=== PATIENT | female | born 1940 | race Caucasian/White ===

== ENCOUNTER → 2016-06-23 | Outpatient (CLI) | payer MEDICARE, OTHER | END | disposition home or self-care (01) | LOC: LAB.O 08:34 | PROVIDERS: ATTEND Internal Medicine Rheumatology | DX: R76.8 Other specified abnormal immunological findings in serum (principal) ==

== ENCOUNTER → 2016-07-19 | Outpatient (CLI) | payer MEDICARE, OTHER ==
--- NOTE | 2016-07-19 10:05 | RAD ---
EXAM DESCRIPTION: Knee,Right Complete CLINICAL HISTORY: PAIN IN RIGHT KNEE COMPARISON: None. IMPRESSION: 3 standing views of the right knee show diffuse osteopenia of the osseous structures. No acute fracture, focal bone destruction, or joint dislocation is seen. There is at least mild narrowing of the tibiofemoral compartment consistent with mild osteoarthritic changes. Moderate narrowing of the lateral patellofemoral compartment and lateral patellar osteophyte consistent with osteoarthritic changes are noted. Electronically signed by: Carlos Alberto Rooney MD 07/19/2016 10:04 AM CDT
--- NOTE | 2016-07-19 10:22 | RAD ---
EXAM DESCRIPTION: Pelvis CLINICAL HISTORY: 76 years Female, PAIN IN RIGHT HIP COMPARISON: December 15, 2015 FINDINGS: There is no acute fracture or malalignment. Mild degenerative changes are noted in both hips, unchanged from the previous exam. Degenerative changes are also noted in the pubic symphysis. IMPRESSION: Mild degenerative changes in both hips, but no additional right hip abnormality. Electronically signed by: Shad Rand MD 07/19/2016 10:22 AM CDT
== END | disposition home or self-care (01) ==
LOC: RAD 08:41
PROVIDERS: ATTEND Orthopaedic Surgery
DX: M25.551 Pain in right hip (principal)

== ENCOUNTER 2016-07-20 14:31 | Emergency (ER) | payer MEDICARE, OTHER ==
[2016-07-20] MEDS ORDERED: ASPIRIN TABLET 325 MG TAB PO ONE (14:45)
[2016-07-20] MEDS ORDERED: cloNIDine HCL 0.1 MG TAB PO ONE (15:37)
--- NOTE | 2016-07-20 15:54 | RAD ---
EXAM DESCRIPTION: Chest,1 View CLINICAL HISTORY: 76 years Female, not feeling well. Malaise. COMPARISON: 05/17/2014 IMPRESSION: Heart size and pulmonary vascularity are within normal limits. A small hiatal hernia suspected. There is no airspace consolidation, pleural effusion, or pneumothorax. No acute osseous abnormality. Electronically signed by: Cesario Arroyo MD 07/20/2016 3:53 PM CDT
[2016-07-20 17:08] VITALS: O2SAT 96
--- NOTE | 2016-07-20 17:21 | ED.PDOC ---
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 SHE BECAME LIGHT HEADED, WEAK, SHAKY. HAS BEEN FEELING MORE ANXIOUS LATELY ABOUT HER CHRONIC DRY TONGUE FOR WHICH SHE SEES RHEUM AND ENT. BP 168/89, PULSE 95 AT HOME. PT STATES IS USUALLY 120'S SBP. FEELS BETTER WHEN LYING DOWN. USED TO BE ON BYSTOLIC, CARDS STOPPED IN ABOUT 1 YR AGO SINCE WASN'T NEEDING ANYMORE. SEE CARDS Q6MOS. H/O 3 STENTS. DENIES CP/SOB. - History of Present Illness Allergies/Adverse Reactions: Allergies NO KNOWN ALLERGY Allergy (Verified 04/29/14 08:13) Home Medications: Ambulatory Orders Aspirin (Enteric Coated) 81 mg PO DAILY 05/27/12 Clopidogrel Bisulfate [Plavix] 75 mg PO HS 05/27/12 Esomeprazole [Nexium] 40 mg PO ACBK 05/27/12 Fenofibrate 160 mg PO HS 05/27/12 Gabapentin [Neurontin] 300 mg PO DAILY 08/03/15 Simvastatin 20 mg PO DAILY 08/03/15 Zolpidem Tartrate [Ambien] 10 mg PO BEDTIME 08/03/15 Lorazepam [Ativan] 0.5 mg PO Q6HR PRN #14 tab 04/02/16 Review of Systems - Review of Systems Constitutional: States: malaise, weakness EENTM: Denies: eye pain, blurred vision, double vision Respiratory: States: no symptoms reported. Denies: short of breath, wheezing Cardiology: Denies: chest pain, palpitations Gastrointestinal/Abdominal: States: no symptoms reported Genitourinary: States: no symptoms reported Musculoskeletal: States: no symptoms reported Skin: States: no symptoms reported Neurological: States: weakness - GENERALIZED; NO FOCAL WEAKNESS. . Denies: numbness, paresthesia Endocrine: States: no symptoms reported Hematologic/Lymphatic: States: no symptoms reported All other Systems: Reviewed and Negative Past Medical History (General) - Patient Medical History Hx Seizures: No Hx Stroke: No Hx Dementia: No Hx Asthma: No Hx of COPD: No Hx Cardiac Disorders: Yes Hx Congestive Heart Failure: No Hx Pacemaker: No Hx Hypertension: Yes Hx Thyroid Disease: No Hx Diabetes: Yes Hx Gastroesophageal Reflux: No Hx Renal Disease: No Hx Cancer: No Hx of HIV: No Hx Hepatitis C: No Hx MRSA: No - Vaccination History Hx Tetanus, Diphtheria Vaccination: No Hx Influenza Vaccination: Yes Hx Pneumococcal Vaccination: Yes - Social History Hx Tobacco Use: No Hx Chewing Tobacco Use: No Hx Alcohol Use: No Hx Substance Use: No Hx Substance Use Treatment: No Hx Depression: No Hx Physical Abuse: No Hx Emotional Abuse: No Hx Suspected Abuse: No - Female History Patient : No Family Medical History - Family History Mother Family History: No Known Physical Exam - Physical Exam General Appearance: Alert, Comfortable Eye Exam: bilateral normal Ears, Nose, Throat: hearing grossly normal, normal pharynx Neck: non-tender, full range of motion, supple Respiratory: chest non-tender, lungs clear, normal breath sounds, no respiratory distress Cardiovascular/Chest: normal peripheral pulses, regular rate, rhythm, no edema, no gallop, no JVD, no murmur Peripheral Pulses: radial,right: 2+, radial,left: 2+ Gastrointestinal/Abdominal: normal bowel sounds, non tender, soft Back Exam: normal inspection, no CVA tenderness Extremity: normal range of motion, non-tender, no pedal edema 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 I SUSPECT SHE HAS UNDERLYING HTN WHICH IS WORSENING WITH TIME. CBC, CMP, TROP, CXR UNREMARKABLE. EKG SHOWS PVC'S. NO S-T CHANGES. NO S/SX OF STROKE. ORTHOSTATIC V.S. NEG. F/U W/ PCP AND CARDS RE: HTN, PVC'S, ANXIETY. Departure - Departure Clinical Impression: Uncontrolled hypertension, Premature ventricular contraction on electrocardiogram, Anxiety about health, Weakness generalized Disposition: Discharge to Home or Self Care Condition: Good Departure Forms: ED Discharge - Pt. Copy, Patient Portal Self Enrollment Instructions: Treatments for High Blood Pressure: More Than Just Taking a Pill Diet: resume usual diet Activity: increase activity as tolerated Referrals: Dipak Gutiérrez MD [Primary Care Provider] - 1-2 Days Home Medications: Ambulatory Orders Aspirin (Enteric Coated) 81 mg PO DAILY 05/27/12 Clopidogrel Bisulfate [Plavix] 75 mg PO HS 05/27/12 Esomeprazole [Nexium] 40 mg PO ACBK 05/27/12 Fenofibrate 160 mg PO HS 05/27/12 Gabapentin [Neurontin] 300 mg PO DAILY 08/03/15 Simvastatin 20 mg PO DAILY 08/03/15 Zolpidem Tartrate [Ambien] 10 mg PO BEDTIME 08/03/15 Lorazepam [Ativan] 0.5 mg PO Q6HR PRN #14 tab 04/02/16 Additional Instructions: Relax at home tonight and please follow-up with your regular doctor tomorrow to recheck the blood pressure and talk more about your anxiety. It is great meeting you.
[2016-07-20 18:39] VITALS: TEMP 98.1
[2016-07-20 18:47] VITALS: BP 135/86
== END 2016-07-20 17:22 | disposition home or self-care (01) ==
LOC: ER 14:31
DX: I49.3 Ventricular premature depolarization (principal); I10 Essential (primary) hypertension; F41.9 Anxiety disorder, unspecified; R53.1 Weakness; E11.9 Type 2 diabetes mellitus without complications; Z79.82 Long term (current) use of aspirin; Z79.02 Long term (current) use of antithrombotics/antiplatelets; Z79.899 Other long term (current) drug therapy

== ENCOUNTER → 2016-08-26 | Outpatient (CLI) | payer MEDICARE, OTHER | LOC: GMAH 14:42 | PROVIDERS: ATTEND Family Medicine | DX: N30.00 Acute cystitis without hematuria (principal) ==

== ENCOUNTER 2017-02-06 08:43 | Emergency (ER) | payer MEDICARE, OTHER ==
--- NOTE | 2017-02-06 08:45 | ED.PDOC ---
History of Present Illness - General Chief Complaint: General Stated Complaint: dizziness Time Seen by Provider: 02/06/17 08:43 Source: patient, Vital Signs reviewed Exam Limitations: no limitations - History of Present Illness Initial Comments: Mara Maxwell 76 y/o female stated that got up this morning turned around and got dizzy stating felt head was spinning denies blurry vision,dysarthria,stated had ringing in her ears for so many years but does not bother her,no hearing loss, no weakness,no vomiting. Timing/Duration: 1-3 hours Severity: moderate Worsening Factors: nothing Associated Symptoms: denies symptoms Allergies/Adverse Reactions: Allergies NO KNOWN ALLERGY Allergy (Verified 04/29/14 08:13) Home Medications: Ambulatory Orders Aspirin (Enteric Coated) 81 mg PO DAILY 05/27/12 Clopidogrel Bisulfate [Plavix] 75 mg PO HS 05/27/12 Esomeprazole [Nexium] 40 mg PO ACBK 05/27/12 Fenofibrate 160 mg PO HS 05/27/12 Gabapentin [Neurontin] 600 mg PO DAILY 08/03/15 Simvastatin 20 mg PO DAILY 08/03/15 Lorazepam [Ativan] 0.5 mg PO Q6HR PRN #14 tab 04/02/16 Dimenhydrinate [Dramamine] 50 mg PO Q6HRS PRN #30 chw 02/06/17 Temazepam 30 mg PO BEDTIME 02/06/17 Review of Systems - Review of Systems Constitutional: States: no symptoms reported EENTM: States: no symptoms reported Respiratory: States: no symptoms reported Gastrointestinal/Abdominal: States: no symptoms reported Genitourinary: States: no symptoms reported Musculoskeletal: States: no symptoms reported Neurological: States: no symptoms reported Past Medical History (General) - Patient Medical History Hx Seizures: No Hx Stroke: No Hx Dementia: No Hx Asthma: No Hx of COPD: No Hx Cardiac Disorders: Yes Hx Congestive Heart Failure: No Hx Pacemaker: No Hx Hypertension: Yes Hx Thyroid Disease: No Hx Gastroesophageal Reflux: No Hx Renal Disease: No Hx Cancer: No Hx of HIV: No Hx Hepatitis C: No Hx MRSA: No Hx Other PMH: Yes - gerd Surgical History: appendectomy, cholecystectomy, tonsillectomy - Vaccination History Hx Tetanus, Diphtheria Vaccination: No Hx Influenza Vaccination: Yes Hx Pneumococcal Vaccination: Yes - Social History Hx Tobacco Use: No Hx Chewing Tobacco Use: No Hx Alcohol Use: No Hx Substance Use: No Hx Substance Use Treatment: No Hx Depression: No Hx Physical Abuse: No Hx Emotional Abuse: No Hx Suspected Abuse: No - Activities of Daily Living Patient Lives Alone: No - Grooming Ability: Independent Eating (Feeding) Ability: Independent Toileting Ability: Independent - Female History Patient : No Family Medical History - Family History Mother Family History: No Known Living Status: Still Living Hx Family;Other: aortic aneurysm -dad Physical Exam - Physical Exam General Appearance: Alert, Comfortable, No apparent distress Eye Exam: bilateral normal Ears, Nose, Throat: hearing grossly normal, normal ENT inspection Neck: non-tender, full range of motion, supple Respiratory: lungs clear, normal breath sounds Cardiovascular/Chest: normal peripheral pulses, regular rate, rhythm, no murmur Peripheral Pulses: radial,right: 2+, radial,left: 2+ Gastrointestinal/Abdominal: normal bowel sounds, non tender, soft, no organomegaly Extremity: normal inspection, no pedal edema, no calf tenderness Neurologic: no motor/sensory deficits, alert, normal mood/affect, oriented x 3 Skin Exam: normal color, warm/dry Lymphatic: no adenopathy Progress - Progress Progress: 02/06/17 09:17 Vital Signs - 8 hr 02/06/17 08:50 Temperature 95.3 F L Pulse Rate [ 75 Left Brachial] Respiratory 20 Rate Blood Pressure 158/92 [Left Arm] O2 Sat by Pulse 100 Oximetry - Results/Orders Results/Orders: Laboratory Tests 02/06/17 02/06/17 09:37 09:37 WBC 5.7 RBC 4.44 Hgb 13.7 Hct 41.6 MCV 93.7 MCH 30.8 MCHC 32.8 L RDW 14.7 H Plt Count 224 MPV 8.3 Absolute Neuts (auto) 3.40 Absolute Lymphs (auto) 1.50 Absolute Monos (auto) 0.40 Absolute Eos (auto) 0.30 Absolute Basos (auto) 0.10 Neutrophils % 59.8 Lymphocytes % 26.5 Monocytes % 7.5 Eosinophils % 5.0 Basophils % 1.2 Sodium 140 Potassium 4.0 Chloride 109 Carbon Dioxide 25 Anion Gap 10.0 L BUN 20 H Creatinine 0.98 BUN/Creatinine Ratio 20.4 H Random Glucose 139 H Serum Osmolality 284.3 Calcium 9.4 Total Bilirubin 0.5 AST 20 ALT 21 Alkaline Phosphatase 36 L Serum Total Protein 7.0 Albumin 4.1 Globulin 2.9 Albumin/Globulin Ratio 1.4 Patient felt better less dizziness after phenergan and decadron. - EKG/XRAY/CT EKG: Sinus, nonspecific ST T wave Chg - inferior leads Comments: heart rate71 Departure - Departure Clinical Impression: Vertigo, benign positional Qualifiers: Laterality: unspecified laterality Qualified Code(s): H81.10 - Benign paroxysmal vertigo, unspecified ear Time of Disposition: 12:09 Disposition: Discharge to Home or Self Care Condition: Fair Departure Forms: ED Discharge - Pt. Copy, Patient Portal Self Enrollment Instructions: Benign Paroxysmal Positional Vertigo, DI for Vertigo, DI for Benign Paroxysmal Positional Vertigo, Vertigo (Alternative Therapy) Referrals: Dipak Gutiérrez MD [Primary Care Provider] - 1-2 Weeks Prescriptions: Dimenhydrinate [Dramamine] 50 mg PO Q6HRS PRN #30 chw PRN Reason: Dizziness Home Medications: Ambulatory Orders Aspirin (Enteric Coated) 81 mg PO DAILY 05/27/12 Clopidogrel Bisulfate [Plavix] 75 mg PO HS 05/27/12 Esomeprazole [Nexium] 40 mg PO ACBK 05/27/12 Fenofibrate 160 mg PO HS 05/27/12 Gabapentin [Neurontin] 600 mg PO DAILY 08/03/15 Simvastatin 20 mg PO DAILY 08/03/15 Lorazepam [Ativan] 0.5 mg PO Q6HR PRN #14 tab 04/02/16 Dimenhydrinate [Dramamine] 50 mg PO Q6HRS PRN #30 chw 02/06/17 Temazepam 30 mg PO BEDTIME 02/06/17 Additional Instructions: RETURN to EMERGENCY ROOM NEEDED
[2017-02-06 08:53] VITALS: TEMP 95.3
[2017-02-06] MEDS ORDERED: DEXAMETHASONE INJ 4 MG/ML VIAL IM ONE (09:18)
[2017-02-06] MEDS ORDERED: PROMETHAZINE HCL INJ 25 MG/ML VIAL IM ONE (09:18)
[2017-02-06] MEDS ORDERED: SODIUM CHLORIDE 0.9% 500ML 500 ML IVS ONE (10:03)
[2017-02-06 12:24] VITALS: BP 142/86; O2SAT 96
== END 2017-02-06 12:24 | disposition home or self-care (01) ==
LOC: ER 08:43
DX: H81.10 Benign paroxysmal vertigo, unspecified ear (principal); I10 Essential (primary) hypertension; K21.9 Gastro-esophageal reflux disease without esophagitis; Z79.82 Long term (current) use of aspirin; Z79.02 Long term (current) use of antithrombotics/antiplatelets
CPT/HCPCS: 36415; 80053; 81001; 85025; 93005; J1100; J2550; J7040

== ENCOUNTER → 2017-03-10 | Outpatient (CLI) | payer MEDICARE, OTHER | END | disposition home or self-care (01) | LOC: LAB.O 14:54 | PROVIDERS: ATTEND Psychiatry & Neurology Neurology | DX: E53.8 Deficiency of other specified B group vitamins (principal); E11.9 Type 2 diabetes mellitus without complications; I67.9 Cerebrovascular disease, unspecified; F90.9 Attention-deficit hyperactivity disorder, unspecified type; R50.9 Fever, unspecified; M79.A9 Nontraumatic compartment syndrome of other sites; M10.9 Gout, unspecified; E55.9 Vitamin D deficiency, unspecified; M45.0 Ankylosing spondylitis of multiple sites in spine; M25.50 Pain in unspecified joint; G60.3 Idiopathic progressive neuropathy; M35.1 Other overlap syndromes; G35 Multiple sclerosis; G70.00 Myasthenia gravis without (acute) exacerbation; G04.89 Other myelitis; M54.81 Occipital neuralgia; H46.9 Unspecified optic neuritis; M35.3 Polymyalgia rheumatica; I73.00 Raynaud's syndrome without gangrene; M35.00 Sjogren syndrome, unspecified; M32.10 Systemic lupus erythematosus, organ or system involvement unspecified; Z79.899 Other long term (current) drug therapy ==

== ENCOUNTER 2017-03-11 21:22 | Emergency (ER) | payer MEDICARE, OTHER ==
--- NOTE | 2017-03-11 21:38 | ED.PDOC ---
History of Present Illness - General Chief Complaint: General Stated Complaint: dizzy,feels tongue dry,jittery Time Seen by Provider: 03/11/17 21:24 Source: patient, Vital Signs reviewed, EMS notes reviewed Exam Limitations: no limitations - History of Present Illness Initial Comments: Mara Maxwell 76 y/o female brought by ems after she became jittery,dizzy and tongue was dry .Had been tapering on her gabapentin for the last one month.Took her lorazepam 1 mg po at home Timing/Duration: 1-3 hours Severity: moderate Improving Factors: nothing Worsening Factors: nothing Associated Symptoms: other - see hpi Allergies/Adverse Reactions: Allergies NO KNOWN ALLERGY Allergy (Verified 03/11/17 21:50) Home Medications: Ambulatory Orders Aspirin (Enteric Coated) 81 mg PO DAILY 05/27/12 Clopidogrel Bisulfate [Plavix] 75 mg PO HS 05/27/12 Esomeprazole [Nexium] 40 mg PO ACBK 05/27/12 Fenofibrate 160 mg PO HS 05/27/12 Gabapentin [Neurontin] 600 mg PO DAILY 08/03/15 Simvastatin 20 mg PO DAILY 08/03/15 Lorazepam [Ativan] 0.5 mg PO Q6HR PRN #14 tab 04/02/16 Dimenhydrinate [Dramamine] 50 mg PO Q6HRS PRN #30 chw 02/06/17 Temazepam 30 mg PO BEDTIME 02/06/17 Cefuroxime Axetil [Ceftin] 500 mg PO BID #20 tab 03/11/17 Review of Systems - Review of Systems Constitutional: States: no symptoms reported EENTM: States: other - tongue dryness Respiratory: States: no symptoms reported Cardiology: States: no symptoms reported Gastrointestinal/Abdominal: States: no symptoms reported Genitourinary: States: no symptoms reported Musculoskeletal: States: no symptoms reported Skin: States: no symptoms reported Neurological: States: see HPI Endocrine: States: no symptoms reported Hematologic/Lymphatic: States: no symptoms reported Past Medical History (General) - Patient Medical History Hx Seizures: No Hx Stroke: No Hx Dementia: No Hx Asthma: No Hx of COPD: No Hx Cardiac Disorders: Yes Hx Congestive Heart Failure: No Hx Pacemaker: No Hx Hypertension: Yes Hx Thyroid Disease: No Hx Diabetes: Yes Hx Gastroesophageal Reflux: No Hx Renal Disease: No Hx Cancer: No Hx of HIV: No Hx Hepatitis C: No Hx MRSA: No Surgical History: appendectomy, cholecystectomy, other - hysterectomy - Vaccination History Hx Tetanus, Diphtheria Vaccination: No Hx Influenza Vaccination: Yes Hx Pneumococcal Vaccination: Yes - Social History Hx Tobacco Use: No Hx Chewing Tobacco Use: No Hx Alcohol Use: No Hx Substance Use: No Hx Substance Use Treatment: No Hx Depression: No Hx Physical Abuse: No Hx Emotional Abuse: No Hx Suspected Abuse: No - Activities of Daily Living Patient Lives Alone: No - family Grooming Ability: Independent Eating (Feeding) Ability: Independent Toileting Ability: Independent - Female History Patient : No Family Medical History - Family History Mother Family History: No Known Living Status: Still Living Hx Family;Other: aortic aneurysm -dad Physical Exam - Physical Exam General Appearance: Comfortable, No apparent distress, Other - somnolent but cooperates during exam Eye Exam: bilateral normal Ears, Nose, Throat: hearing grossly normal, normal ENT inspection, normal pharynx Neck: non-tender, full range of motion, supple Respiratory: chest non-tender, lungs clear, normal breath sounds Cardiovascular/Chest: normal peripheral pulses, regular rate, rhythm, no murmur Peripheral Pulses: radial,right: 2+, radial,left: 2+ Gastrointestinal/Abdominal: non tender, soft, no organomegaly Back Exam: no CVA tenderness, no vertebral tenderness Extremity: normal range of motion, normal inspection, no pedal edema, no calf tenderness Neurologic: no motor/sensory deficits, oriented x 3, other - pronator drift negative;somnolent Skin Exam: normal color, warm/dry Lymphatic: no adenopathy Progress - Progress Progress: 03/11/17 23:23 Last Vital Signs Temp 98.6 F 03/11/17 21:53 Pulse 78 03/11/17 21:53 Resp 20 03/11/17 21:53 BP 153/91 03/11/17 21:53 Pulse Ox 99 03/11/17 21:53 Laboratory Tests 03/11/17 03/11/17 03/11/17 21:30 21:30 21:30 WBC 7.9 RBC 4.34 Hgb 13.5 Hct 40.0 MCV 92.0 MCH 31.1 H MCHC 33.8 RDW 13.3 Plt Count 341 MPV 7.8 Absolute Neuts (auto) 4.00 Absolute Lymphs (auto) 2.70 Absolute Monos (auto) 0.80 Absolute Eos (auto) 0.20 Absolute Basos (auto) 0.10 Neutrophils % 50.8 Lymphocytes % 34.9 Monocytes % 10.5 H Eosinophils % 2.7 Basophils % 1.1 Sodium 137 Potassium 3.3 L Chloride 105 Carbon Dioxide 21 Anion Gap 14.3 BUN 18 Creatinine 0.94 BUN/Creatinine Ratio 19.1 Random Glucose 120 H Serum Osmolality 276.9 Calcium 10.0 Total Bilirubin 0.3 AST 20 ALT 17 Alkaline Phosphatase 37 L Troponin I < 0.02 Serum Total Protein 7.5 Albumin 4.0 Globulin 3.5 Albumin/Globulin Ratio 1.1 - Results/Orders Results/Orders: Fully alert and awake-2329H - EKG/XRAY/CT EKG: Sinus, nonspecific ST T wave Chg Comments: heart rate 78 CT Ordered: Yes - left maxillary sinusitis Departure - Departure Clinical Impression: Altered awareness, transient, Dizziness Sinusitis, acute, maxillary Qualifiers: Recurrence: not specified as recurrent Qualified Code(s): J01.00 - Acute maxillary sinusitis, unspecified Time of Disposition: 23:29 Disposition: Discharge to Home or Self Care Condition: Good Departure Forms: ED Discharge - Pt. Copy, Patient Portal Self Enrollment Instructions: DI for Sinusitis, Sinusitis (Alternative Therapy), Sinusitis Referrals: Dipak Gutiérrez MD [Primary Care Provider] - 1-2 Weeks Prescriptions: Cefuroxime Axetil [Ceftin] 500 mg PO BID #20 tab Home Medications: Ambulatory Orders Aspirin (Enteric Coated) 81 mg PO DAILY 05/27/12 Clopidogrel Bisulfate [Plavix] 75 mg PO HS 05/27/12 Esomeprazole [Nexium] 40 mg PO ACBK 05/27/12 Fenofibrate 160 mg PO HS 05/27/12 Gabapentin [Neurontin] 600 mg PO DAILY 08/03/15 Simvastatin 20 mg PO DAILY 08/03/15 Lorazepam [Ativan] 0.5 mg PO Q6HR PRN #14 tab 04/02/16 Dimenhydrinate [Dramamine] 50 mg PO Q6HRS PRN #30 chw 02/06/17 Temazepam 30 mg PO BEDTIME 02/06/17 Cefuroxime Axetil [Ceftin] 500 mg PO BID #20 tab 03/11/17 Additional Instructions: RETURN TO EMERGENCY ROOM NEEDED;Taper your gabapentin 300mg daily for 7 days then every other day for 7 days then every 2 days until off.Follow up with primary md 03/14/2017 call for your appointment as needed
[2017-03-11] MEDS ORDERED: SODIUM CHLORIDE 0.9% 500ML 500 ML IVS ONE (21:50)
[2017-03-11 21:54] VITALS: O2SAT 99
--- NOTE | 2017-03-11 22:57 | CT ---
EXAM DESCRIPTION: Head CLINICAL HISTORY: twitching COMPARISON: None Available TECHNIQUE: Contiguous axial CT images of the head were obtained. Coronal and sagittal reconstructions were created from the axial data. This exam was performed according to our departmental dose-optimization program, which includes automated exposure control, adjustment of the mA and/or kV according to patient size and/or use of iterative reconstruction technique. FINDINGS: There is a fluid level in the left maxillary sinus. The optic lenses are asymmetric. Ophthalmologic correlation will be helpful. There is no evidence of acute mass, mass effect, midline shift or hemorrhage. The ventricles and extra-axial CSF spaces are unremarkable. The brain parenchyma appears normal for the patient's age. No acute abnormalities of the bones is seen. IMPRESSION: Acute paranasal sinusitis. No other acute intracranial abnormality. Electronically signed by: Sandro Rodas 03/11/2017 10:56 PM [facility]
[2017-03-11] MEDS ORDERED: CEFUROXIME AXETIL TAB 250 MG TAB PO ONE (23:26)
[2017-03-11 23:52] VITALS: BP 128/74; TEMP 97.4
== END 2017-03-11 23:52 | disposition home or self-care (01) ==
LOC: ER 21:22
DX: J01.00 Acute maxillary sinusitis, unspecified (principal); R42 Dizziness and giddiness; R40.4 Transient alteration of awareness; I10 Essential (primary) hypertension; E11.9 Type 2 diabetes mellitus without complications; Z79.82 Long term (current) use of aspirin; Z79.02 Long term (current) use of antithrombotics/antiplatelets; Z79.899 Other long term (current) drug therapy
CPT/HCPCS: 36415; 70450; 80053; 84484; 85025; 93005; J7040

== ENCOUNTER → 2017-04-06 | Outpatient (CLI) | payer MEDICARE, OTHER | END | disposition home or self-care (01) | LOC: GMAH 14:42 | PROVIDERS: ATTEND Family Medicine | DX: N30.00 Acute cystitis without hematuria (principal) ==

== ENCOUNTER → 2017-04-07 | Outpatient (CLI) | payer MEDICARE, OTHER | END | disposition home or self-care (01) | LOC: LAB.O 13:54 | PROVIDERS: ATTEND Psychiatry & Neurology Neurology | DX: M79.1 Myalgia (principal); G70.00 Myasthenia gravis without (acute) exacerbation; G04.89 Other myelitis; G72.9 Myopathy, unspecified ==

== ENCOUNTER 2017-06-22 13:45 | Emergency (ER) | payer MEDICARE, OTHER ==
[2017-06-22 14:08] VITALS: TEMP 97.2
[2017-06-22] MEDS ORDERED: BENZTROPINE MESYLATE TAB 1 MG TAB PO ONE (14:21)
[2017-06-22] MEDS ORDERED: SODIUM CHLORIDE 0.9% 1000ML 1,000 ML IVS ONE (14:27)
--- NOTE | 2017-06-22 14:56 | CT ---
EXAM DESCRIPTION: Head: Computed Tomography. CLINICAL HISTORY: new stutter COMPARISON: None. TECHNIQUE: Non-helical axial scans through the skull and brain, at 2.5 mm intervals, non-contrast. Coronal and sagittal 2.0 mm reconstructions. Total Exam DLP: 752.48 mGy-cm. This exam was performed according to our departmental dose-optimization program which includes automated exposure control, adjustment of the mA and/or kV according to patient size and/or use of iterative reconstruction technique; to reduce radiation dose to as low as reasonably achievable (ALARA). FINDINGS: No hemorrhage, no mass-effect, and no midline shift. Bilateral minimal decreased signal in the periventricular white matter. No abnormal radiodense material in the brain parenchyma, but calcification in the right basal ganglia. Vascular calcifications anterior and posterior circulations; physiologic calcifications in the pineal gland and choroid plexus. No effacement or displacement of the ventricles, CSF spaces, or subdural spaces. No extra axial fluid collection or hemorrhage. The structures appear age-appropriate. No gross abnormalities of the bony calvarium. Mucoperiosteal thickening and possible fluid left ethmoid air cells. Mastoid air cells bilaterally unremarkable. IMPRESSION: 1. No hemorrhage, no mass effect, no midline shift. Minimal bilateral periventricular white matter low-density most likely related to cerebral microvascular disease. Cisterns and CSF spaces are normally configured for patients age. Right basal ganglia calcification most likely due to atherosclerotic disease, but could also be secondary to prior inflammatory process, prior hemorrhage or less likely, tumor. Correlate with clinical findings. 2. CT scans are insensitive for detecting small CVAs in the first 24 hours after onset. Evaluation of the brain stem is also limited. If symptoms persist, consider MRI scan of the brain with diffusion imaging. Electronically signed by: Sandro Carrasco MD 06/22/2017 2:55 PM [facility]
[2017-06-22] MEDS ORDERED: POTASSIUM CHLORIDE ELIXIR 20 MEQ/15 ML UD PO ONE (15:44)
[2017-06-22] MEDS ORDERED: MAGNESIUM SULFATE PREMIX 2GM 2 GM in PREMIX BAG 1 BAG IVPB ONE (15:44)
[2017-06-22 15:45] VITALS: O2SAT 97
[2017-06-22] MEDS ORDERED: MAGNESIUM SULFATE PREMIX 2GM 50 ML IVPB ONE (16:08)
--- NOTE | 2017-06-22 16:37 | ED.PDOC ---
History of Present Illness - General Chief Complaint: General Stated Complaint: "Don't feel good" Time Seen by Provider: 06/22/17 14:00 Source: patient Exam Limitations: clinical condition - History of Present Illness Initial Comments: the patient is a 77-year-old female presenting to the emergency room secondary to developing some stuttering this morning along with some mild dizziness and generalized fatigue. No fevers. She does have chronic oral pain for which she is currently taking carbamazepine. She just started this medication 7 days ago. No injuries. No other focal neurological changes. She is alert and oriented. She is not in any distress. She is very anxious. Timing/Duration: 4-6 hours Severity: mild Improving Factors: nothing Worsening Factors: nothing Associated Symptoms: malaise Allergies/Adverse Reactions: Allergies NO KNOWN ALLERGY Allergy (Verified 03/11/17 21:50) Home Medications: Ambulatory Orders Aspirin (Enteric Coated) 81 mg PO DAILY 05/27/12 Clopidogrel Bisulfate [Plavix] 75 mg PO HS 05/27/12 Esomeprazole [Nexium] 40 mg PO ACBK 05/27/12 Fenofibrate 160 mg PO HS 05/27/12 Simvastatin 20 mg PO DAILY 08/03/15 Lorazepam [Ativan] 0.5 mg PO Q6HR PRN #14 tab 04/02/16 Dimenhydrinate [Dramamine] 50 mg PO Q6HRS PRN #30 chw 02/06/17 Temazepam 30 mg PO BEDTIME 02/06/17 Carbamazepine 100 mg PO BEDTIME 06/22/17 Zolpidem Tartrate 10 mg PO BEDTIME 06/22/17 Review of Systems - Review of Systems Constitutional: States: malaise EENTM: States: no symptoms reported Respiratory: States: no symptoms reported Cardiology: States: no symptoms reported Gastrointestinal/Abdominal: States: no symptoms reported Genitourinary: States: no symptoms reported Musculoskeletal: States: no symptoms reported Skin: States: no symptoms reported Neurological: States: anxiety Endocrine: States: no symptoms reported All other Systems: No Change from Baseline - there is some stuttering in her speech and a tremor in her jaw that her says is new Past Medical History (General) - Patient Medical History Hx Seizures: No Hx Stroke: No Hx Dementia: No Hx Asthma: No Hx of COPD: No Hx Cardiac Disorders: Yes Hx Congestive Heart Failure: No Hx Pacemaker: No Hx Hypertension: Yes Hx Thyroid Disease: No Hx Diabetes: Yes Hx Gastroesophageal Reflux: No Hx Renal Disease: No Hx Cancer: No Hx of HIV: No Hx Hepatitis C: No Hx MRSA: No - Vaccination History Hx Tetanus, Diphtheria Vaccination: No Hx Influenza Vaccination: Yes Hx Pneumococcal Vaccination: Yes - Social History Hx Tobacco Use: No Hx Chewing Tobacco Use: No Hx Alcohol Use: No Hx Substance Use: No Hx Substance Use Treatment: No Hx Depression: No Hx Physical Abuse: No Hx Emotional Abuse: No Hx Suspected Abuse: No - Female History Patient : No Family Medical History - Family History Mother Family History: No Known Living Status: Still Living Hx Family;Other: aortic aneurysm -dad Physical Exam - Physical Exam General Appearance: Alert, Anxious Eye Exam: bilateral normal Ears, Nose, Throat: hearing grossly normal, nasal congestion - mild, other - the patient does have some tremulousness in her jaw when she speaks. She also has a stuttering in her speech. Neck: full range of motion, supple Respiratory: lungs clear, normal breath sounds, no respiratory distress, no accessory muscle use Cardiovascular/Chest: normal peripheral pulses, regular rate, rhythm, no edema Peripheral Pulses: radial,right: 2+, radial,left: 2+, dorsalis pedis,right: 2+, dorsalis pedis,left: 2+ Gastrointestinal/Abdominal: non tender, soft Rectal Exam: deferred Back Exam: normal inspection, no CVA tenderness Extremity: normal range of motion, non-tender, normal inspection, no pedal edema , normal capillary refill Neurologic: primary health care nurse II-XII nml as tested, no motor/sensory deficits, alert, normal mood/affect - she is very anxious, oriented x 3 Skin Exam: normal color Comments: Vital Signs - 24 hr 06/22/17 06/22/17 06/22/17 14:03 15:15 15:35 Temperature 97.2 F L Pulse Rate [ 94 H 96 H 90 Left Radial] Respiratory 22 20 20 Rate Blood Pressure 164/93 157/100 161/99 [Left Arm] O2 Sat by Pulse 96 97 Oximetry 06/22/17 15:55 Temperature Pulse Rate [ 95 H Left Radial] Respiratory 20 Rate Blood Pressure 176/99 [Left Arm] O2 Sat by Pulse 97 Oximetry Progress - Progress Progress: 06/22/17 16:38 the patient is 77-year-old female presenting with symptoms that are consistent with side effects from her carbamazepine. She has been advised to discontinue this. She has received 1 dose of oral Cogentin and a liter of IV fluids and her symptoms have abated. She needs to discuss further treatment with her neurologist. She also does have some mild hypokalemia and hypomagnesemia. She was given doses of both of them here tonight. She needs to have these levels repeated with her primary care doctor in 2 weeks. ER warnings were given for any significant worsening. - Results/Orders Results/Orders: Laboratory Tests 06/22/17 06/22/17 06/22/17 14:27 14:45 14:45 WBC 6.1 RBC 4.29 Hgb 13.3 Hct 39.8 MCV 92.7 MCH 31.0 MCHC 33.4 RDW 14.4 Plt Count 231 MPV 7.8 Absolute Neuts (auto) 4.30 Absolute Lymphs (auto) 1.10 Absolute Monos (auto) 0.50 Absolute Eos (auto) 0.10 Absolute Basos (auto) 0.10 Neutrophils % 69.6 Lymphocytes % 18.7 L Monocytes % 8.2 Eosinophils % 2.2 Basophils % 1.3 Sodium 140 Potassium 3.4 L Chloride 109 Carbon Dioxide 19 L Anion Gap 15.4 BUN 11 Creatinine 0.76 BUN/Creatinine Ratio 14.5 Random Glucose 115 H Serum Osmolality 279.7 Calcium 8.4 Magnesium 1.5 L Total Bilirubin 0.6 AST 19 ALT 17 Alkaline Phosphatase 49 Creatine Kinase 43 CK-MB (CK-2) 0.6 CK-MB (CK-2) % Not Reportable Troponin I < 0.02 Serum Total Protein 6.4 Albumin 3.7 Globulin 2.7 Albumin/Globulin Ratio 1.4 TSH 1.94 Urine Color Yellow Urine Appearance Clear Urine pH 7.0 Ur Specific Roper 1.015 Urine Protein Negative Urine Glucose (UA) Negative Urine Ketones Negative Urine Blood Negative Urine Nitrite Negative Urine Bilirubin Negative Urine Urobilinogen 0.2 Ur Leukocyte Esterase Negative Urine RBC 0 Urine WBC 0 Ur Epithelial Cells 1-3 Urine Bacteria 0 Carbamazepine 06/22/17 14:45 WBC RBC Hgb Hct MCV MCH MCHC RDW Plt Count MPV Absolute Neuts (auto) Absolute Lymphs (auto) Absolute Monos (auto) Absolute Eos (auto) Absolute Basos (auto) Neutrophils % Lymphocytes % Monocytes % Eosinophils % Basophils % Sodium Potassium Chloride Carbon Dioxide Anion Gap BUN Creatinine BUN/Creatinine Ratio Random Glucose Serum Osmolality Calcium Magnesium Total Bilirubin AST ALT Alkaline Phosphatase Creatine Kinase CK-MB (CK-2) CK-MB (CK-2) % Troponin I Serum Total Protein Albumin Globulin Albumin/Globulin Ratio TSH Urine Color Urine Appearance Urine pH Ur Specific Roper Urine Protein Urine Glucose (UA) Urine Ketones Urine Blood Urine Nitrite Urine Bilirubin Urine Urobilinogen Ur Leukocyte Esterase Urine RBC Urine WBC Ur Epithelial Cells Urine Bacteria Carbamazepine 4.1 CT scan of the head shows no acute pathology. Departure - Departure Clinical Impression: Hypokalemia, Hypomagnesemia Adverse reaction of antiepileptic Qualifiers: Encounter type: initial encounter Qualified Code(s): T42.75XA - Adverse effect of unspecified antiepileptic and sedative-hypnotic drugs, initial encounter Disposition: Discharge to Home or Self Care Condition: Fair Departure Forms: ED Discharge - Pt. Copy, Patient Portal Self Enrollment Instructions: Hypokalemia Diet: regular diet Activity: increase activity as tolerated Referrals: Dipak Gutiérrez MD [Primary Care Provider] - 1-2 Weeks Home Medications: Ambulatory Orders Aspirin (Enteric Coated) 81 mg PO DAILY 05/27/12 Clopidogrel Bisulfate [Plavix] 75 mg PO HS 05/27/12 Esomeprazole [Nexium] 40 mg PO ACBK 05/27/12 Fenofibrate 160 mg PO HS 05/27/12 Simvastatin 20 mg PO DAILY 08/03/15 Lorazepam [Ativan] 0.5 mg PO Q6HR PRN #14 tab 04/02/16 Dimenhydrinate [Dramamine] 50 mg PO Q6HRS PRN #30 chw 02/06/17 Temazepam 30 mg PO BEDTIME 02/06/17 Carbamazepine 100 mg PO BEDTIME 06/22/17 Zolpidem Tartrate 10 mg PO BEDTIME 06/22/17 Additional Instructions: the patient is 77-year-old female presenting with symptoms that are consistent with side effects from her carbamazepine. She has been advised to discontinue this. She has received 1 dose of oral Cogentin and a liter of IV fluids and her symptoms have abated. She needs to discuss further treatment with her neurologist. She also does have some mild hypokalemia and hypomagnesemia. She was given doses of both of them here tonight. She needs to have these levels repeated with her primary care doctor in 2 weeks. ER warnings were given for any significant worsening.
[2017-06-22 17:37] VITALS: BP 167/108
== END 2017-06-22 17:36 | disposition home or self-care (01) ==
LOC: ER 13:45
DX: E87.6 Hypokalemia (principal); T42.1X5A Adverse effect of iminostilbenes, initial encounter; E83.42 Hypomagnesemia; E11.9 Type 2 diabetes mellitus without complications; I10 Essential (primary) hypertension; Z79.82 Long term (current) use of aspirin; Z79.02 Long term (current) use of antithrombotics/antiplatelets
CPT/HCPCS: 36415; 70450; 80053; 80156; 81001; 82550; 82553; 83735; 84443; 84484; 85025; J3475; J7030

== ENCOUNTER 2017-06-23 01:53 | Emergency (ER) | payer MEDICARE, OTHER ==
[2017-06-23 02:18] VITALS: TEMP 97.8
[2017-06-23 02:46] VITALS: O2SAT 95
[2017-06-23] MEDS ORDERED: cloNIDine HCL 0.1 MG TAB PO ONE (02:51)
--- NOTE | 2017-06-23 03:29 | ED.PDOC ---
History of Present Illness - General Chief Complaint: GI Problem Stated Complaint: nausea, high BP Time Seen by Provider: 06/23/17 01:53 Source: patient Exam Limitations: no limitations - History of Present Illness Initial Comments: the patient is a 77-year-old female presenting to the emergency room after having woke up this morning early in the morning with a headache. The patient does frequently have headaches apparently. She also has some mild/ moderate hypertension that has been untreated recently. She does have severe anxiety. When she woke up with a headache she checked her blood pressure and it was moderately elevated. This of course prompted her to check it multiple repeat times. As would be expected that she continue to recheck it continued to rise. The patient was actually seen here earlier in the day due to some mild side effects from the carbamazepine that she had just started 1 week ago for oral pain. She was also given some magnesium for hypomagnesemia and some potassium for mild hypokalemia. She did have a fairly extensive workup that included a head CT to rule out any obvious acute intracranial pathology giving some of her side effects. Her head CT did not show any acute pathology. No evidence of hemorrhage. No evidence of hydrocephalus. No evidence of stroke. She reports that she checked her blood pressure in one arm one time and the other the next time and reported a 50 point difference. Her blood pressures in both arms are symmetrical here. Blood pressures are moderately elevated upon arrival with a systolic of around 175 and a diastolic around 100. As the patient relaxes these do of course decrease. This is the same pattern seen earlier today. The patient is reporting some nausea with her elevated blood pressure. Repeat head CT is not indicated given that she just had one a few hours ago. Timing/Duration: 1/2 hour Severity: moderate Improving Factors: nothing Worsening Factors: nothing Associated Symptoms: headaches Allergies/Adverse Reactions: Allergies Gabapentin [From Neurontin] Allergy (Verified 06/23/17 02:19) Home Medications: Ambulatory Orders Aspirin (Enteric Coated) 81 mg PO DAILY 05/27/12 Clopidogrel Bisulfate [Plavix] 75 mg PO HS 05/27/12 Esomeprazole [Nexium] 40 mg PO ACBK 05/27/12 Fenofibrate 160 mg PO HS 05/27/12 Simvastatin 20 mg PO DAILY 08/03/15 Lorazepam [Ativan] 0.5 mg PO Q6HR PRN #14 tab 04/02/16 Dimenhydrinate [Dramamine] 50 mg PO Q6HRS PRN #30 chw 02/06/17 Temazepam 30 mg PO BEDTIME 02/06/17 Carbamazepine 100 mg PO BEDTIME 06/22/17 Zolpidem Tartrate 10 mg PO BEDTIME 06/22/17 Propranolol HCl 40 mg PO BID #60 tab 06/23/17 Review of Systems - Review of Systems Constitutional: States: malaise EENTM: States: no symptoms reported Respiratory: States: no symptoms reported Cardiology: States: no symptoms reported Gastrointestinal/Abdominal: States: nausea. Denies: vomiting Genitourinary: States: no symptoms reported Musculoskeletal: States: no symptoms reported Skin: States: no symptoms reported Neurological: States: headache - that wraps around her head. No focal pain. No neurological deficits. Endocrine: States: no symptoms reported All other Systems: No Change from Baseline Past Medical History (General) - Patient Medical History Hx Seizures: No Hx Stroke: No Hx Dementia: No Hx Asthma: No Hx of COPD: No Hx Cardiac Disorders: Yes Hx Congestive Heart Failure: No Hx Pacemaker: No Hx Hypertension: Yes Hx Thyroid Disease: No Hx Diabetes: No Hx Gastroesophageal Reflux: No Hx Renal Disease: No Hx Cancer: No Hx of HIV: No Hx Hepatitis C: No Hx MRSA: No - Vaccination History Hx Tetanus, Diphtheria Vaccination: No Hx Influenza Vaccination: Yes Hx Pneumococcal Vaccination: Yes - Social History Hx Tobacco Use: No Hx Chewing Tobacco Use: No Hx Alcohol Use: No Hx Substance Use: No Hx Substance Use Treatment: No Hx Depression: Yes Feels Threatened In Home Enviroment: No Feels Threatened In a Relationship: No Hx Physical Abuse: No Hx Emotional Abuse: No Hx Suspected Abuse: No - Female History Patient is a Female of Child Bearing Age (10 -59 yrs old): No Patient : No Family Medical History - Family History Mother Family History: No Known Living Status: Still Living Hx Family;Other: aortic aneurysm -dad Physical Exam - Physical Exam General Appearance: Alert, Anxious Eye Exam: bilateral normal Ears, Nose, Throat: hearing grossly normal, normal ENT inspection, normal pharynx Neck: full range of motion, supple Respiratory: lungs clear, normal breath sounds, no respiratory distress, no accessory muscle use Cardiovascular/Chest: normal peripheral pulses, regular rate, rhythm, no edema Peripheral Pulses: radial,right: 2+, radial,left: 2+, dorsalis pedis,right: 2+, dorsalis pedis,left: 2+ Gastrointestinal/Abdominal: non tender, soft Rectal Exam: deferred Back Exam: normal inspection, no CVA tenderness, no vertebral tenderness Extremity: normal range of motion, non-tender, normal inspection, no pedal edema , normal capillary refill Neurologic: quality manager II-XII nml as tested, alert, oriented x 3, other - the patient is very anxious. Skin Exam: normal color Comments: Vital Signs - 24 hr 06/23/17 06/23/17 02:13 02:46 Temperature 97.8 F Pulse Rate [ 95 H 87 Left Brachial] Respiratory 18 14 Rate Blood Pressure 180/119 179/99 [Right Arm] O2 Sat by Pulse 98 95 Oximetry Progress - Progress Progress: 06/23/17 03:31 the patient is a 77-year-old female presenting to the emergency room secondary to a mild tension headache, moderately uncontrolled hypertension, all compounded by uncontrolled anxiety. The patient was given a dose of clonidine here and monitored. She did already have a significant workup earlier in the day including a head CT that failed to show any acute pathology. The patient is going to be placed on low-dose propranolol which will hopefully have multiple benefits for this patient. She needs to follow up with her primary care doctor tomorrow. ER warnings were given. Departure - Departure Clinical Impression: Tension headache, Anxiety, generalized, Uncontrolled hypertension Disposition: Discharge to Home or Self Care Condition: Good Departure Forms: ED Discharge - Pt. Copy, Patient Portal Self Enrollment Instructions: Generalized Anxiety Disorder, High Blood Pressure, DI for Hormonal and Tension Headaches Diet: regular diet Activity: increase activity as tolerated Referrals: Dipak Gutiérrez MD [Primary Care Provider] - 1-2 Days Prescriptions: Propranolol HCl 40 mg PO BID #60 tab Home Medications: Ambulatory Orders Aspirin (Enteric Coated) 81 mg PO DAILY 05/27/12 Clopidogrel Bisulfate [Plavix] 75 mg PO HS 05/27/12 Esomeprazole [Nexium] 40 mg PO ACBK 05/27/12 Fenofibrate 160 mg PO HS 05/27/12 Simvastatin 20 mg PO DAILY 08/03/15 Lorazepam [Ativan] 0.5 mg PO Q6HR PRN #14 tab 04/02/16 Dimenhydrinate [Dramamine] 50 mg PO Q6HRS PRN #30 chw 02/06/17 Temazepam 30 mg PO BEDTIME 02/06/17 Carbamazepine 100 mg PO BEDTIME 06/22/17 Zolpidem Tartrate 10 mg PO BEDTIME 06/22/17 Propranolol HCl 40 mg PO BID #60 tab 06/23/17 Additional Instructions: the patient is a 77-year-old female presenting to the emergency room secondary to a mild tension headache, moderately uncontrolled hypertension, all compounded by uncontrolled anxiety. The patient was given a dose of clonidine here and monitored. She did already have a significant workup earlier in the day including a head CT that failed to show any acute pathology. The patient is going to be placed on low-dose propranolol which will hopefully have multiple benefits for this patient. She needs to follow up with her primary care doctor tomorrow. ER warnings were given.
[2017-06-23 05:06] VITALS: BP 155/98
== END 2017-06-23 04:55 | disposition home or self-care (01) ==
LOC: ER 01:53
DX: I10 Essential (primary) hypertension (principal); G44.209 Tension-type headache, unspecified, not intractable; F41.9 Anxiety disorder, unspecified

== ENCOUNTER 2017-08-02 08:31 | Emergency (ER) | payer OTHER ==
--- NOTE | 2017-08-02 08:50 | ED.PDOC ---
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 She was placed on 2 week course of oral antibiotics -no improvement noted.On her arrival here patient was hysterical/stuttering stating does not want further treatment after hearing that she has appointment with another ENT in [place] by the for tomorrow.Patient stated wants to go to [facility] mentioning about her first and all other relatives that . Severity: moderate Improving Factors: nothing Worsening Factors: nothing Associated Symptoms: other - see hpi Allergies/Adverse Reactions: Allergies Gabapentin [From Neurontin] Allergy (Verified 08/02/17 08:53) Home Medications: Ambulatory Orders Clopidogrel Bisulfate [Plavix] 75 mg PO HS 05/27/12 Esomeprazole [Nexium] 40 mg PO ACBK 05/27/12 Simvastatin 20 mg PO DAILY 08/03/15 Lorazepam [Ativan] 0.5 mg PO Q6HR PRN #14 tab 04/02/16 Carbamazepine 100 mg PO BEDTIME 06/22/17 Zolpidem Tartrate 10 mg PO BEDTIME 06/22/17 Propranolol HCl 40 mg PO BID #60 tab 06/23/17 Acyclovir [Zovirax] 800 mg PO DAILY 08/02/17 Fluticasone Propionate (Nasal) [Flonase] 50 mcg NA PRN PRN 08/02/17 Review of Systems - Review of Systems Constitutional: States: no symptoms reported EENTM: States: see HPI Respiratory: States: no symptoms reported Cardiology: States: no symptoms reported Gastrointestinal/Abdominal: States: no symptoms reported Genitourinary: States: no symptoms reported Musculoskeletal: States: no symptoms reported Skin: States: no symptoms reported Neurological: States: no symptoms reported Endocrine: States: no symptoms reported All other Systems: Reviewed and Negative, No Change from Baseline Past Medical History (General) - Patient Medical History Hx Seizures: No Hx Stroke: No Hx Dementia: No Hx Asthma: No Hx of COPD: No Hx Cardiac Disorders: Yes Hx Congestive Heart Failure: No Hx Pacemaker: No Hx Hypertension: Yes Hx Thyroid Disease: No Hx Diabetes: No Hx Gastroesophageal Reflux: No Hx Renal Disease: No Hx Cancer: No Hx of HIV: No Hx Hepatitis C: No Hx MRSA: No Surgical History: appendectomy, cholecystectomy, other - hysterectomy - Vaccination History Hx Tetanus, Diphtheria Vaccination: No Hx Influenza Vaccination: Yes Hx Pneumococcal Vaccination: Yes - Social History Hx Tobacco Use: No Hx Chewing Tobacco Use: No Hx Alcohol Use: No Hx Substance Use: No Hx Substance Use Treatment: No Hx Depression: Yes Hx Physical Abuse: No Hx Emotional Abuse: No Hx Suspected Abuse: No - Activities of Daily Living Grooming Ability: Independent Eating (Feeding) Ability: Independent Toileting Ability: Independent - Female History Patient : No Family Medical History - Family History Mother Family History: No Known Living Status: Still Living Hx Family;Other: aortic aneurysm -dad Physical Exam - Physical Exam General Appearance: Agitated, Alert, Anxious, No apparent distress Eye Exam: bilateral normal Ears, Nose, Throat: hearing grossly normal, normal ENT inspection, normal pharynx, other - no abnormalities noted Neck: non-tender, full range of motion, supple Respiratory: lungs clear, normal breath sounds, no respiratory distress Cardiovascular/Chest: normal peripheral pulses, regular rate, rhythm, no murmur Peripheral Pulses: radial,right: 2+, radial,left: 2+ Gastrointestinal/Abdominal: normal bowel sounds, non tender, soft Back Exam: no CVA tenderness, no vertebral tenderness Extremity: no pedal edema, no calf tenderness Neurologic: no motor/sensory deficits, oriented x 3 Skin Exam: normal color, warm/dry Lymphatic: no adenopathy Progress - Progress Progress: 08/02/17 10:59 Vital Signs - 8 hr 08/02/17 08:31 Temperature 97.5 F L Pulse Rate [ 76 pulse ox] Respiratory 20 Rate Blood Pressure 178/108 [Left Arm] O2 Sat by Pulse 98 Oximetry - Results/Orders Results/Orders: 08/02/17 08:50 CARDIAC PANEL,ER Stat FOLATE Stat 08/02/17 09:00 EKG STAT 08/02/17 11:09 Referral:Mental Health ONCE 08/02/17 13:15 Be Our Guest Tray (ANNE) ONCE Laboratory Results - last 24 hr 08/02/17 08/02/17 08/02/17 08:55 09:15 09:52 WBC 8.1 RBC 4.94 Hgb 15.3 Hct 45.6 MCV 92.4 MCH 31.0 MCHC 33.6 RDW 14.5 Plt Count 223 MPV 8.8 Absolute Neuts (auto) 5.70 Absolute Lymphs (auto) 1.70 Absolute Monos (auto) 0.50 Absolute Eos (auto) 0.10 Absolute Basos (auto) 0.00 Neutrophils % 70.6 Lymphocytes % 21.5 Monocytes % 6.2 Eosinophils % 1.2 Basophils % 0.5 PT 11.7 INR 1.010 PTT (SP) 25.2 Sodium 139 Potassium 3.4 L Chloride 108 Carbon Dioxide 20 L Anion Gap 14.4 BUN 16 Creatinine 0.79 BUN/Creatinine Ratio 20.3 H POC Glucose Random Glucose 144 H Serum Osmolality 281.3 Calcium 9.7 Magnesium 1.6 L Total Bilirubin 1.4 H Direct Bilirubin 0.2 Indirect Bilirubin 1.2 H AST 21 ALT 22 Alkaline Phosphatase 50 Creatine Kinase 41 CK-MB (CK-2) 0.8 CK-MB (CK-2) % Not Reportable Troponin I < 0.02 Serum Total Protein 7.2 Albumin 4.1 Urine Color Urine Appearance Urine pH Ur Specific [place] Urine Protein Urine Glucose (UA) Urine Ketones Urine Blood Urine Nitrite Urine Bilirubin Urine Urobilinogen Ur Leukocyte Esterase Urine RBC Urine WBC Ur Epithelial Cells Urine Bacteria Urine Opiates Screen Negative Urine Barbiturates Negative Ur Phencyclidine Scrn Negative U Amphetamin/Meth Scrn Negative U Benzodiazepines Scrn Positive H U Cocaine Metab Screen Negative U Cannabinoids Screen Negative 08/02/17 08/02/17 09:54 13:16 WBC RBC Hgb Hct MCV MCH MCHC RDW Plt Count MPV Absolute Neuts (auto) Absolute Lymphs (auto) Absolute Monos (auto) Absolute Eos (auto) Absolute Basos (auto) Neutrophils % Lymphocytes % Monocytes % Eosinophils % Basophils % PT INR PTT (SP) Sodium Potassium Chloride Carbon Dioxide Anion Gap BUN Creatinine BUN/Creatinine Ratio POC Glucose 141 H Random Glucose Serum Osmolality Calcium Magnesium Total Bilirubin Direct Bilirubin Indirect Bilirubin AST ALT Alkaline Phosphatase Creatine Kinase CK-MB (CK-2) CK-MB (CK-2) % Troponin I Serum Total Protein Albumin Urine Color Yellow Urine Appearance Clear Urine pH 7.0 Ur Specific [place] 1.015 Urine Protein Negative Urine Glucose (UA) Negative Urine Ketones 15 H Urine Blood Negative Urine Nitrite Negative Urine Bilirubin Negative Urine Urobilinogen 1.0 Ur Leukocyte Esterase Negative Urine RBC 0 Urine WBC 0 Ur Epithelial Cells 1-3 Urine Bacteria 0 Urine Opiates Screen Urine Barbiturates Ur Phencyclidine Scrn U Amphetamin/Meth Scrn U Benzodiazepines Scrn U Cocaine Metab Screen U Cannabinoids Screen - EKG/XRAY/CT XRAY: chest - no acute abnormalities Departure - Departure Clinical Impression: Dysgeusia, Anxiety attack Time of Disposition: 15:33 Disposition: Transfer to Hospital Condition: Fair Departure Forms: ED Discharge - Pt. Copy, Patient Portal Self Enrollment Referrals: Dipak Gutiérrez MD [Primary Care Provider] - 1-2 Weeks Home Medications: Ambulatory Orders Clopidogrel Bisulfate [Plavix] 75 mg PO HS 05/27/12 Esomeprazole [Nexium] 40 mg PO ACBK 05/27/12 Simvastatin 20 mg PO DAILY 08/03/15 Lorazepam [Ativan] 0.5 mg PO Q6HR PRN #14 tab 04/02/16 Carbamazepine 100 mg PO BEDTIME 06/22/17 Zolpidem Tartrate 10 mg PO BEDTIME 06/22/17 Propranolol HCl 40 mg PO BID #60 tab 06/23/17 Acyclovir [Zovirax] 800 mg PO DAILY 08/02/17 Fluticasone Propionate (Nasal) [Flonase] 50 mcg NA PRN PRN 08/02/17 Additional Instructions: MAY GO BY POV Transfer to Outside Facility - Transfer Information Accepting Provider:: [facility] -evaluation done Reason for Transfer: required specialist not available
[2017-08-02 08:53] VITALS: TEMP 97.5
--- NOTE | 2017-08-02 10:19 | RAD ---
EXAM DESCRIPTION: Chest,1 View CLINICAL HISTORY: 77 years Female, ams COMPARISON: July 20, 2016 TECHNIQUE: AP portable chest. FINDINGS: Fair expansion of the lungs is evident without consolidation, layering effusion, or large mass. Heart size and vascularity appear normal for AP technique and degree of inspiration. No gross bony, hilar, or mediastinal abnormalities are noted. IMPRESSION: Normal chest, one view Electronically signed by: Eren Thomson MD 08/02/2017 10:18 AM CDT
[2017-08-02] MEDS ORDERED: MAGNESIUM SULFATE PREMIX 2GM 2 GM in PREMIX BAG 1 BAG IVPB ONE (11:00)
[2017-08-02] MEDS ORDERED: MAGNESIUM SULFATE PREMIX 2GM 50 ML IVPB ONE (11:30)
[2017-08-02 16:18] VITALS: O2SAT 98
[2017-08-02 16:41] VITALS: BP 162/92
== END 2017-08-02 16:35 | disposition short-term general hospital (02) ==
LOC: ER 08:31
DX: R43.2 Parageusia (principal); F41.0 Panic disorder [episodic paroxysmal anxiety]; Z79.02 Long term (current) use of antithrombotics/antiplatelets; Z79.899 Other long term (current) drug therapy; I10 Essential (primary) hypertension

== ENCOUNTER 2017-10-13 19:18 | Emergency (ER) | payer OTHER ==
[2017-10-13] MEDS ORDERED: SODIUM CHLORIDE 0.9% (FLUSH) 10 ML SYG IV PRN (19:31)
--- NOTE | 2017-10-13 19:32 | ED.PDOC ---
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 Timing/Duration: 1-3 hours Severity: moderate Improving Factors: nothing Worsening Factors: other - see hpi Associated Symptoms: other - see hpi Allergies/Adverse Reactions: Allergies Gabapentin [From Neurontin] Allergy (Verified 08/02/17 08:53) Home Medications: Ambulatory Orders Clopidogrel Bisulfate [Plavix] 75 mg PO HS 05/27/12 Esomeprazole [Nexium] 40 mg PO ACBK 05/27/12 Simvastatin 20 mg PO DAILY 08/03/15 Lorazepam [Ativan] 0.5 mg PO Q6HR PRN #14 tab 04/02/16 Carbamazepine 100 mg PO BEDTIME 06/22/17 Zolpidem Tartrate 10 mg PO BEDTIME 06/22/17 Propranolol HCl 40 mg PO BID #60 tab 06/23/17 Acyclovir [Zovirax] 800 mg PO DAILY 08/02/17 Fluticasone Propionate (Nasal) [Flonase] 50 mcg NA PRN PRN 08/02/17 Duloxetine HCl [Cymbalta] 30 mg PO DAILY 10/13/17 Losartan Potassium 50 mg PO DAILY 10/13/17 Review of Systems - Review of Systems Constitutional: States: no symptoms reported Respiratory: States: no symptoms reported Cardiology: States: no symptoms reported Gastrointestinal/Abdominal: States: no symptoms reported Genitourinary: States: no symptoms reported Musculoskeletal: States: no symptoms reported Skin: States: no symptoms reported Neurological: States: see HPI All other Systems: Reviewed and Negative, No Change from Baseline Past Medical History (General) - Patient Medical History Hx Seizures: No Hx Stroke: No Hx Dementia: No Hx Asthma: No Hx of COPD: No Hx Cardiac Disorders: Yes Hx Congestive Heart Failure: No Hx Pacemaker: No Hx Hypertension: Yes Hx Thyroid Disease: No Hx Diabetes: No Hx Gastroesophageal Reflux: No Hx Renal Disease: No Hx Cancer: No Hx of HIV: No Hx Hepatitis C: No Hx MRSA: No Surgical History: appendectomy, cholecystectomy, tonsillectomy - Vaccination History Hx Tetanus, Diphtheria Vaccination: No Hx Influenza Vaccination: Yes Hx Pneumococcal Vaccination: Yes - Social History Hx Tobacco Use: No Hx Chewing Tobacco Use: No Hx Alcohol Use: No Hx Substance Use: No Hx Substance Use Treatment: No Hx Depression: Yes Hx Physical Abuse: No Hx Emotional Abuse: No Hx Suspected Abuse: No - Female History Patient : No Family Medical History - Family History Mother Family History: No Known Living Status: Still Living Hx Family;Other: aortic aneurysm -dad Physical Exam - Physical Exam General Appearance: Alert, Comfortable, No apparent distress Eye Exam: bilateral normal Ears, Nose, Throat: hearing grossly normal, normal ENT inspection Neck: non-tender, full range of motion, supple Respiratory: chest non-tender, lungs clear, normal breath sounds, no respiratory distress Cardiovascular/Chest: normal peripheral pulses, regular rate, rhythm, no murmur Peripheral Pulses: radial,right: 2+, radial,left: 2+ Gastrointestinal/Abdominal: normal bowel sounds, non tender, soft, no organomegaly Back Exam: no CVA tenderness, no vertebral tenderness Extremity: no pedal edema, no calf tenderness 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, no motor/sensory deficits, alert, oriented x 3, other - pronator drift negative DTR: 2+: Patellar, left, Patellar, right Skin Exam: normal color, warm/dry Lymphatic: no adenopathy Progress - Progress Progress: 10/13/17 20:11 Vital Signs - 8 hr 10/13/17 19:29 Temperature 98.1 F Pulse Rate 96 H Pulse Rate [ 112 H left] Respiratory 18 Rate Blood Pressure 187/112 [left] O2 Sat by Pulse 97 Oximetry 10/13/17 22:27 Vital Signs - 8 hr 10/13/17 10/13/17 10/13/17 19:29 19:50 20:30 Temperature 98.1 F Pulse Rate 96 H 101 H 101 H Pulse Rate [ 112 H 101 H 92 H left] Respiratory 18 18 18 Rate Blood Pressure 187/112 165/93 160/91 [left] O2 Sat by Pulse 97 97 96 Oximetry 10/13/17 10/13/17 21:15 22:11 Temperature Pulse Rate 101 H 101 H Pulse Rate [ 86 80 left] Respiratory 18 18 Rate Blood Pressure 156/97 168/100 [left] O2 Sat by Pulse 96 96 Oximetry 10/13/17 22:28 No evidence of drooping lips at time of discharge - Results/Orders Results/Orders: 10/13/17 19:31 Sodium Chloride 0.9% (Flush) [Saline Flush Syringe] 10 ml IV PRN PRN 10/13/17 19:33 IV Care:Saline Lock per Protoc QSHIFT Telemetry .ONCE 10/13/17 19:45 EKG STAT Laboratory Results - last 24 hr 10/13/17 10/13/17 10/13/17 19:28 19:28 19:28 WBC 10.8 RBC 4.44 Hgb 13.8 Hct 41.2 MCV 92.7 MCH 31.1 H MCHC 33.6 RDW 14.1 Plt Count 272 MPV 8.4 Absolute Neuts (auto) 6.30 Absolute Lymphs (auto) 3.10 Absolute Monos (auto) 0.90 H Absolute Eos (auto) 0.30 Absolute Basos (auto) 0.10 Neutrophils % 58.8 Lymphocytes % 28.9 Monocytes % 8.7 Eosinophils % 2.7 Basophils % 0.9 PT 9.3 INR 0.93 PTT (SP) 20.5 L Sodium 137 Potassium 3.6 Chloride 106 Carbon Dioxide 21 Anion Gap 13.6 BUN 15 Creatinine 0.88 BUN/Creatinine Ratio 17.0 POC Glucose Random Glucose 171 H Serum Osmolality 278.7 Calcium 9.3 Total Bilirubin 0.6 AST 25 ALT 22 Alkaline Phosphatase 49 Creatine Kinase 62 CK-MB (CK-2) 1.0 CK-MB (CK-2) % Not Reportable Troponin I < 0.02 Serum Total Protein 7.0 Albumin 4.0 Globulin 3.0 Albumin/Globulin Ratio 1.3 10/13/17 19:28 WBC RBC Hgb Hct MCV MCH MCHC RDW Plt Count MPV Absolute Neuts (auto) Absolute Lymphs (auto) Absolute Monos (auto) Absolute Eos (auto) Absolute Basos (auto) Neutrophils % Lymphocytes % Monocytes % Eosinophils % Basophils % PT INR PTT (SP) Sodium Potassium Chloride Carbon Dioxide Anion Gap BUN Creatinine BUN/Creatinine Ratio POC Glucose 153 H Random Glucose Serum Osmolality Calcium Total Bilirubin AST ALT Alkaline Phosphatase Creatine Kinase CK-MB (CK-2) CK-MB (CK-2) % Troponin I Serum Total Protein Albumin Globulin Albumin/Globulin Ratio - EKG/XRAY/CT CT Ordered: Yes - head-no acute abnormalities Departure - Departure Clinical Impression: High blood pressure Qualifiers: Hypertension type: unspecified Qualified Code(s): I10 - Essential (primary) hypertension TIA (transient ischemic attack) Qualifiers: Transient cerebral ischemia type: unspecified Qualified Code(s): G45.9 - Transient cerebral ischemic attack, unspecified Time of Disposition: 22:30 Disposition: Discharge to Home or Self Care Condition: Fair Departure Forms: ED Discharge - Pt. Copy, Patient Portal Self Enrollment Instructions: DI for Transient Ischemic Attack, Transient Ischemic Attack Referrals: Dipak Gutiérrez MD [Primary Care Provider] - 1-2 Weeks Home Medications: Ambulatory Orders Clopidogrel Bisulfate [Plavix] 75 mg PO HS 05/27/12 Esomeprazole [Nexium] 40 mg PO ACBK 05/27/12 Simvastatin 20 mg PO DAILY 08/03/15 Lorazepam [Ativan] 0.5 mg PO Q6HR PRN #14 tab 04/02/16 Carbamazepine 100 mg PO BEDTIME 06/22/17 Zolpidem Tartrate 10 mg PO BEDTIME 06/22/17 Propranolol HCl 40 mg PO BID #60 tab 06/23/17 Acyclovir [Zovirax] 800 mg PO DAILY 08/02/17 Fluticasone Propionate (Nasal) [Flonase] 50 mcg NA PRN PRN 08/02/17 Duloxetine HCl [Cymbalta] 30 mg PO DAILY 10/13/17 Losartan Potassium 50 mg PO DAILY 10/13/17 Additional Instructions: NEED TO RE -START blood pressure medicine in am as directed;Continue rest of home medications;Follow up with primary Md in am 14 October 2017;RETURN TO EMERGENCY ROOM NEEDED
[2017-10-13] MEDS ORDERED: LISINOPRIL 10 MG TAB PO ONE (20:03)
[2017-10-13] MEDS ORDERED: amLODIPine BESYLATE 5 MG TAB PO ONE (20:03)
--- NOTE | 2017-10-13 20:10 | RAD ---
EXAM DESCRIPTION: Chest,1 View CLINICAL HISTORY: 77 years Female possible stroke COMPARISON: 08/02/2017 FINDINGS: The cardiomediastinal silhouette appears unremarkable. No consolidating infiltrates or pleural effusions. No pneumothorax. Mild elevation the right hemidiaphragm which is unchanged. IMPRESSION: No acute abnormality is identified. Electronically signed by: Imelda Stone MD 10/13/2017 8:08 PM CDT
--- NOTE | 2017-10-13 20:19 | CT ---
PROCEDURE: Head CLINICAL HISTORY: 77 years Female possible stroke COMPARISON: 06/22/2017 TECHNIQUE: Contiguous axial CT images obtained through the brain without IV contrast. This exam was performed according to our department optimization program which includes automated exposure control, adjustment of the mA and/or kv according to patient size and/or use of iterative reconstruction technique. FINDINGS: The ventricles and sulci are prominent consistent with atrophic changes. No mass lesions. No acute hemorrhage. Atherosclerotic calcifications. No fluid or significant mucosal thickening in the visualized paranasal sinuses. No depressed calvarial fractures. IMPRESSION: No acute intracranial abnormality is identified. Dr. Sawant was called and notified of the findings at 8:18 PM Central time. Electronically signed by: Imelda Stone MD 10/13/2017 8:18 PM CDT
[2017-10-13 22:46] VITALS: BP 154/93; TEMP 97.8; O2SAT 97
== END 2017-10-13 22:46 | disposition home or self-care (01) ==
LOC: ER 19:18
DX: G45.9 Transient cerebral ischemic attack, unspecified (principal); I10 Essential (primary) hypertension; I51.9 Heart disease, unspecified; Z88.8 Allergy status to other drugs, medicaments and biological substances; Z79.899 Other long term (current) drug therapy

== ENCOUNTER 2017-11-14 05:32 | Day surgery (SDC) | payer OTHER ==
[2017-11-14] MEDS ORDERED: TROP 1%/CYCLOPEN 1%/PHENYL 2% DROPS ONE (05:58)
[2017-11-14] MEDS ORDERED: PROPARACAINE 0.5% OPHTH SOL 15 ML BTTL ONE (05:58)
[2017-11-14] MEDS ORDERED: MIDAZOLAM INJ 2 MG/2 ML VIAL ONE ×2 (07:11→10:28)
[2017-11-14] MEDS ORDERED: PROPARACAINE 0.5% OPHTH SOL 15 ML BTTL LEFT_EYE ONE (10:20)
[2017-11-14] MEDS ORDERED: DEXAMETHASONE 0.1% OPHTH SOL 1 DROP LEFT_EYE ONE ×3 (10:31→10:51)
[2017-11-14] MEDS ORDERED: LIDOCAINE 1% PF 2 ML AMP INJ ONE (10:31)
[2017-11-14] MEDS ORDERED: TOBRAMYCIN SULF 0.3 % OPHT SOL 1 DROP LEFT_EYE ONE ×3 (10:32→10:51)
[2017-11-14] MEDS ORDERED: BRIMONIDINE 0.2% OPHTH DROPS LEFT_EYE ONE ×3 (10:32→10:51)
== END 2017-11-14 11:25 | disposition home or self-care (01) ==
LOC: AMB 05:32
PROVIDERS: ATTEND Ophthalmology
DX: H25.12 Age-related nuclear cataract, left eye (principal); I10 Essential (primary) hypertension; K21.9 Gastro-esophageal reflux disease without esophagitis; Z79.02 Long term (current) use of antithrombotics/antiplatelets; Z79.899 Other long term (current) drug therapy

== ENCOUNTER 2018-01-01 22:50 | Emergency (ER) | payer OTHER ==
[2018-01-01] MEDS ORDERED: predniSONE 20 MG TAB PO ONE (23:09)
[2018-01-01] MEDS ORDERED: GABAPENTIN 300 MG CAP PO ONE (23:09)
--- NOTE | 2018-01-01 23:11 | ED.PDOC ---
History of Present Illness - General Chief Complaint: General Stated Complaint: left hip and leg pain Time Seen by Provider: 01/01/18 22:59 Source: patient Exam Limitations: no limitations - History of Present Illness Initial Comments: the patient is a 77-year-old female presenting to emergency room secondary to left lower extremity sciatica and it is flared over the last couple days. Most of the pain tends to run around from her hip down towards her knee. She has had issues with sciatica in the past. The pain appears to extend up and be exacerbated by pressure over the piriformis muscle on the left. No recent injuries. 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 No new low back pain. Nosyncope or Near syncope. No other neurological changes. No weakness. No falls. Timing/Duration: 24 hours Severity: moderate Improving Factors: nothing Worsening Factors: movement Associated Symptoms: denies symptoms Allergies/Adverse Reactions: Allergies Gabapentin [From Neurontin] Allergy (Verified 08/02/17 08:53) Home Medications: Ambulatory Orders Clopidogrel Bisulfate [Plavix] 75 mg PO HS 05/27/12 Esomeprazole [Nexium] 40 mg PO ACBK 05/27/12 Simvastatin 20 mg PO DAILY 08/03/15 Lorazepam [Ativan] 0.5 mg PO Q6HR PRN #14 tab 04/02/16 Carbamazepine 100 mg PO BEDTIME 06/22/17 Zolpidem Tartrate 10 mg PO BEDTIME 06/22/17 Propranolol HCl 40 mg PO BID #60 tab 06/23/17 Acyclovir [Zovirax] 800 mg PO DAILY 08/02/17 Fluticasone Propionate (Nasal) [Flonase] 50 mcg NA PRN PRN 08/02/17 Duloxetine HCl [Cymbalta] 30 mg PO DAILY 10/13/17 Losartan Potassium 50 mg PO DAILY 10/13/17 Gabapentin 300 mg PO Q8HRS PRN #20 cap 01/01/18 predniSONE [Prednisone] 20 mg PO DAILY #3 tab 01/01/18 Review of Systems - Review of Systems Constitutional: States: no symptoms reported EENTM: States: no symptoms reported Respiratory: States: no symptoms reported Cardiology: States: no symptoms reported Gastrointestinal/Abdominal: States: no symptoms reported Genitourinary: States: no symptoms reported Musculoskeletal: States: see HPI Skin: States: no symptoms reported Neurological: States: see HPI Endocrine: States: no symptoms reported All other Systems: No Change from Baseline Past Medical History (General) - Patient Medical History Hx Seizures: No Hx Stroke: No Hx Dementia: No Hx Asthma: No Hx of COPD: No Hx Cardiac Disorders: Yes Hx Congestive Heart Failure: No Hx Pacemaker: No Hx Hypertension: Yes Hx Thyroid Disease: No Hx Diabetes: Yes Hx Gastroesophageal Reflux: Yes Hx Renal Disease: No Hx Cancer: No Hx of HIV: No Hx Hepatitis C: No Hx MRSA: No - Vaccination History Hx Tetanus, Diphtheria Vaccination: No Hx Influenza Vaccination: Yes Hx Pneumococcal Vaccination: Yes - Social History Hx Tobacco Use: No Hx Chewing Tobacco Use: No Hx Alcohol Use: No Hx Substance Use: No Hx Substance Use Treatment: No Hx Depression: Yes Hx Physical Abuse: No Hx Emotional Abuse: No Hx Suspected Abuse: No - Female History Patient : No Family Medical History - Family History Mother Family History: No Known Living Status: Still Living Hx Family;Other: aortic aneurysm -dad Physical Exam - Physical Exam General Appearance: Alert, Comfortable, No apparent distress Eye Exam: bilateral normal Ears, Nose, Throat: hearing grossly normal, normal pharynx Neck: non-tender, supple Respiratory: no respiratory distress, no accessory muscle use Cardiovascular/Chest: normal peripheral pulses, regular rate, rhythm, no edema Peripheral Pulses: radial,right: 2+, radial,left: 2+, dorsalis pedis,right: 2+, dorsalis pedis,left: 2+ Gastrointestinal/Abdominal: non tender, soft Rectal Exam: deferred Back Exam: normal inspection, no CVA tenderness, no vertebral tenderness Extremity: non-tender, normal inspection, no pedal edema, normal capillary refill 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 She does need to do stretching exercises to stretch out the piriformis muscle. She will additionally be placed on prednisone 20 mg daily for the next 3 days and will be written for a week's worth of Neurontin. She needs to keep follow-up with her primary care doctor for reevaluation later in the week. ER warnings were given. Departure - Departure Clinical Impression: Piriformis syndrome of left side Disposition: Discharge to Home or Self Care Condition: Fair Departure Forms: ED Discharge - Pt. Copy, Patient Portal Self Enrollment Instructions: Sciatica Exercises, Sciatica (DC) Diet: diabetic diet Activity: increase activity as tolerated Referrals: Dipak Gutiérrez MD [Primary Care Provider] - 1-2 Weeks Prescriptions: Gabapentin 300 mg PO Q8HRS PRN #20 cap PRN Reason: Pain -- Mild To Moderate predniSONE [Prednisone] 20 mg PO DAILY #3 tab Home Medications: Ambulatory Orders Clopidogrel Bisulfate [Plavix] 75 mg PO HS 05/27/12 Esomeprazole [Nexium] 40 mg PO ACBK 05/27/12 Simvastatin 20 mg PO DAILY 08/03/15 Lorazepam [Ativan] 0.5 mg PO Q6HR PRN #14 tab 04/02/16 Carbamazepine 100 mg PO BEDTIME 06/22/17 Zolpidem Tartrate 10 mg PO BEDTIME 06/22/17 Propranolol HCl 40 mg PO BID #60 tab 06/23/17 Acyclovir [Zovirax] 800 mg PO DAILY 08/02/17 Fluticasone Propionate (Nasal) [Flonase] 50 mcg NA PRN PRN 08/02/17 Duloxetine HCl [Cymbalta] 30 mg PO DAILY 10/13/17 Losartan Potassium 50 mg PO DAILY 10/13/17 Gabapentin 300 mg PO Q8HRS PRN #20 cap 01/01/18 predniSONE [Prednisone] 20 mg PO DAILY #3 tab 01/01/18 Additional Instructions: the patient is a 77-year-old female presenting to the emergency room secondary to left lower extremity sciatica that appears to be part of a piriformis syndrome on that side. She does need to do stretching exercises to stretch out the piriformis muscle. She will additionally be placed on prednisone 20 mg daily for the next 3 days and will be written for a week's worth of Neurontin. She needs to keep follow-up with her primary care doctor for reevaluation later in the week. ER warnings were given.
[2018-01-01 23:17] VITALS: TEMP 97.1; O2SAT 97
[2018-01-01 23:47] VITALS: BP 149/88
== END 2018-01-01 23:48 | disposition home or self-care (01) ==
LOC: ER 22:50
DX: G57.02 Lesion of sciatic nerve, left lower limb (principal); F32.9 Major depressive disorder, single episode, unspecified; I10 Essential (primary) hypertension; E11.9 Type 2 diabetes mellitus without complications; K21.9 Gastro-esophageal reflux disease without esophagitis; Z79.899 Other long term (current) drug therapy; Z88.8 Allergy status to other drugs, medicaments and biological substances

== ENCOUNTER 2018-02-15 07:28 | Emergency (ER) | payer OTHER ==
[2018-02-15 07:42] VITALS: TEMP 97
--- NOTE | 2018-02-15 07:46 | ED.PDOC ---
History of Present Illness - General Chief Complaint: Blood Pressure Problem Stated Complaint: high blood pressure Time Seen by Provider: 02/15/18 07:35 Source: patient Exam Limitations: no limitations - History of Present Illness Initial Comments: Mara Conner 77 y/o female stated that she woke this am with blood pressure of 150 /104 took he anti htn medication but did not go down also has dull frontal headache and went away on arrival at er.No blurry vision ,no N/V,no chest pains, no weakness or numbness.Has just been started on new medications HCTZ-25 mg. and taking losartan 25 mg daily. Severity: moderate Improving Factors: nothing Worsening Factors: nothing Associated Symptoms: denies symptoms, other - see hpi Allergies/Adverse Reactions: Allergies NO KNOWN ALLERGY Allergy (Verified 02/15/18 07:33) Home Medications: Ambulatory Orders Clopidogrel Bisulfate [Plavix] 75 mg PO HS 05/27/12 Esomeprazole [Nexium] 40 mg PO ACBK 05/27/12 Simvastatin 20 mg PO DAILY 08/03/15 Lorazepam [Ativan] 0.5 mg PO Q6HR PRN #14 tab 04/02/16 Carbamazepine 100 mg PO BEDTIME 06/22/17 Zolpidem Tartrate 10 mg PO BEDTIME 06/22/17 Fluticasone Propionate (Nasal) [Flonase] 50 mcg NA PRN PRN 08/02/17 Duloxetine HCl [Cymbalta] 30 mg PO DAILY 10/13/17 Losartan Potassium 50 mg PO DAILY 10/13/17 predniSONE [Prednisone] 20 mg PO DAILY #3 tab 01/01/18 Review of Systems - Review of Systems Constitutional: States: no symptoms reported EENTM: States: no symptoms reported Respiratory: States: no symptoms reported Cardiology: States: no symptoms reported Gastrointestinal/Abdominal: States: no symptoms reported Genitourinary: States: no symptoms reported Musculoskeletal: States: no symptoms reported Skin: States: no symptoms reported Neurological: States: no symptoms reported Endocrine: States: no symptoms reported Past Medical History (General) - Patient Medical History Hx Seizures: No Hx Stroke: No Hx Dementia: No Hx Asthma: No Hx of COPD: No Hx Cardiac Disorders: Yes Hx Congestive Heart Failure: No Hx Pacemaker: No Hx Hypertension: Yes Hx Thyroid Disease: No Hx Diabetes: Yes Hx Gastroesophageal Reflux: Yes Hx Renal Disease: No Hx Cancer: No Hx of HIV: No Hx Hepatitis C: No Hx MRSA: No Surgical History: appendectomy, cholecystectomy, tonsillectomy - Vaccination History Hx Tetanus, Diphtheria Vaccination: No Hx Influenza Vaccination: Yes - 2018 Hx Pneumococcal Vaccination: Yes - 2018 - Social History Hx Tobacco Use: No Hx Chewing Tobacco Use: No Hx Alcohol Use: No Hx Substance Use: No Hx Substance Use Treatment: No Hx Depression: Yes Hx Physical Abuse: No Hx Emotional Abuse: No Hx Suspected Abuse: No - Activities of Daily Living Patient Lives Alone: No Grooming Ability: Independent Eating (Feeding) Ability: Independent Toileting Ability: Independent - Female History Patient : No Family Medical History - Family History Mother Family History: No Known Living Status: Still Living Hx Family;Other: aortic aneurysm -dad Physical Exam - Physical Exam General Appearance: Alert, Comfortable, No apparent distress, Other - speech fluent Eye Exam: bilateral normal Ears, Nose, Throat: hearing grossly normal, normal ENT inspection, normal pharynx Neck: non-tender, full range of motion, supple, normal inspection Respiratory: chest non-tender, lungs clear, normal breath sounds, no respiratory distress Cardiovascular/Chest: normal peripheral pulses, regular rate, rhythm, no murmur Peripheral Pulses: radial,right: 2+, radial,left: 2+ Gastrointestinal/Abdominal: normal bowel sounds, non tender, soft, no organomegaly, no pulsatile mass Back Exam: no CVA tenderness, no vertebral tenderness Extremity: non-tender, no pedal edema, no calf tenderness Neurologic: alert, oriented x 3 Skin Exam: normal color, warm/dry Progress - Progress Progress: 02/15/18 08:27 Vital Signs - 8 hr 02/15/18 07:33 Temperature 97.0 F L Pulse Rate [ 94 H Left Radial] Respiratory 20 Rate Blood Pressure 170/105 [Right Arm] O2 Sat by Pulse 98 Oximetry - Results/Orders Results/Orders: Laboratory Tests 02/15/18 02/15/18 02/15/18 08:00 08:00 08:50 WBC 8.5 RBC 4.42 Hgb 13.5 Hct 40.9 MCV 92.6 MCH 30.6 MCHC 33.0 RDW 14.9 H Plt Count 279 MPV 7.0 L Absolute Neuts (auto) 5.50 Absolute Lymphs (auto) 1.90 Absolute Monos (auto) 0.80 Absolute Eos (auto) 0.10 Absolute Basos (auto) 0.10 Neutrophils % 65.1 Lymphocytes % 22.9 Monocytes % 9.4 H Eosinophils % 1.7 Basophils % 0.9 Sodium 138 Potassium 4.1 Chloride 107 Carbon Dioxide 25 Anion Gap 10.1 L BUN 15 Creatinine 0.89 BUN/Creatinine Ratio 16.9 Random Glucose 162 H Serum Osmolality 280.0 Calcium 9.4 Total Bilirubin 0.6 AST 18 ALT 20 Alkaline Phosphatase 49 Serum Total Protein 6.9 Albumin 3.8 Globulin 3.1 Albumin/Globulin Ratio 1.2 Urine Color Yellow Urine Appearance Clear Urine pH 6.0 Ur Specific [place] 1.020 Urine Protein Negative Urine Glucose (UA) Negative Urine Ketones Negative Urine Blood Negative Urine Nitrite Negative Urine Bilirubin Negative Urine Urobilinogen 0.2 Ur Leukocyte Esterase Negative Urine RBC 0 Urine WBC 0 Ur Epithelial Cells 1-3 Urine Bacteria 0 Discuus lab test result with patient that nothing significantly abnormal Departure - Departure Clinical Impression: Hypertension Qualifiers: Hypertension type: unspecified Qualified Code(s): I10 - Essential (primary) hypertension Time of Disposition: 09:33 Disposition: Discharge to Home or Self Care Condition: Good Departure Forms: ED Discharge - Pt. Copy, Patient Portal Self Enrollment Instructions: DI for High Blood Pressure, DASH Diet Referrals: Dipak Gutiérrez MD [Primary Care Provider] - 1-2 Weeks Home Medications: Ambulatory Orders Clopidogrel Bisulfate [Plavix] 75 mg PO HS 05/27/12 Esomeprazole [Nexium] 40 mg PO ACBK 05/27/12 Simvastatin 20 mg PO DAILY 08/03/15 Lorazepam [Ativan] 0.5 mg PO Q6HR PRN #14 tab 04/02/16 Carbamazepine 100 mg PO BEDTIME 06/22/17 Zolpidem Tartrate 10 mg PO BEDTIME 06/22/17 Fluticasone Propionate (Nasal) [Flonase] 50 mcg NA PRN PRN 08/02/17 Duloxetine HCl [Cymbalta] 30 mg PO DAILY 10/13/17 Losartan Potassium 50 mg PO DAILY 10/13/17 predniSONE [Prednisone] 20 mg PO DAILY #3 tab 01/01/18 Additional Instructions: Increase dose of Losartan-25 mg -take losartan 50 mg daily or/2 tabs daily of your losartan pills;continue with rest of medications-home meds;Recheck with your primary MD 21 February 2018 as needed;return to er as needed
[2018-02-15] MEDS ORDERED: hydrALAZINE HCl 20 MG/ML VIAL IV ONE (07:47)
[2018-02-15] MEDS ORDERED: LOSARTAN POTASSIUM 25 MG TAB PO SCH (09:00)
[2018-02-15 09:55] VITALS: BP 147/86; O2SAT 98
== END 2018-02-15 09:54 | disposition home or self-care (01) ==
LOC: ER 07:28
DX: I10 Essential (primary) hypertension (principal); F32.9 Major depressive disorder, single episode, unspecified; K21.9 Gastro-esophageal reflux disease without esophagitis; E11.9 Type 2 diabetes mellitus without complications; Z90.49 Acquired absence of other specified parts of digestive tract; Z79.899 Other long term (current) drug therapy
CPT/HCPCS: 36415; 80053; 81001; 85025; J0360

== ENCOUNTER → 2019-01-11 | Outpatient (CLI) | payer OTHER ==
--- NOTE | 2019-01-11 17:55 | RAD ---
EXAM DESCRIPTION: Knee,Right Complete CLINICAL HISTORY: 78 years, Female, PAIN IN RIGHT KNEE COMPARISON: 07/19/2016 TECHNIQUE: Four views of the right knee FINDINGS: No acute displaced fracture or dislocation is seen. The alignment of the knee is intact. Mild to moderate right knee osteoarthrosis with moderate medial knee compartment joint space loss (on standing view). Small marginal ossified formation at the patellofemoral compartment. Degenerative hypertrophy of the tibial spine. No significant knee joint effusion. The soft tissues are unremarkable. IMPRESSION: 1. No acute osseous abnormality. 2. Mild to moderate right knee osteoarthrosis. Electronically signed by: Froylan Kiran DO 01/11/2019 5:53 PM CDT
--- NOTE | 2019-01-11 17:59 | RAD ---
EXAM DESCRIPTION: Pelvis CLINICAL HISTORY: PAIN IN RIGHT HIP COMPARISON: 07/19/2016 FINDINGS: Frontal view of the pelvis demonstrate no acute displaced fracture or dislocation. No focal bony erosion or aggressive periosteal reaction seen. Mild bilateral hip joint osteoarthrosis is present with joint space narrowing subchondral sclerosis. Mild degenerative changes of the bilateral sacroiliac joints. Moderate degenerative changes symphysis pubis. IMPRESSION: 1. No acute displaced fracture or dislocation. 2. Mild degenerative changes of both hips and sacroiliac joints. 3. Moderate degenerative changes of symphysis pubis. Electronically signed by: Froylan Kiran DO 01/11/2019 5:58 PM CDT
== END ==
LOC: RAD 08:02
PROVIDERS: ATTEND Orthopaedic Surgery
DX: M17.11 Unilateral primary osteoarthritis, right knee (principal); M16.0 Bilateral primary osteoarthritis of hip; M47.898 Other spondylosis, sacral and sacrococcygeal region

== ENCOUNTER 2019-03-07 08:33 | Emergency (ER) | payer OTHER | END 2019-03-07 10:05 | disposition home or self-care (01) | LOC: ER 08:33 | DX: I10 Essential (primary) hypertension (principal); Z79.899 Other long term (current) drug therapy; Z91.14 Patient's other noncompliance with medication regimen ==

== ENCOUNTER 2019-03-25 04:51 | Emergency (ER) | payer OTHER ==
[2019-03-25] MEDS ORDERED: SODIUM CHLORIDE 0.9% 1000ML 1,000 ML IVS ONE ×2 (05:26→06:20)
[2019-03-25] MEDS ORDERED: ACETAMINOPHEN IV 1000MG 1,000 MG in PREMIX BOTTLE 1 BOTTLE IVPB ONE (05:27)
--- NOTE | 2019-03-25 05:30 | ED.PDOC ---
History of Present Illness - General Information Source: patient Exam Limitations: no limitations - History of Present Illness Initial Comments: 78 yo F who presents for epigastric abd pain onset 4 days ago that now radiates into her lower pain, sharp, associated NB diarhea. Reports 16 episodes yesterday. Denies blood. Denies recent antibx use, sick contacts, recent travel. Son in law recently passes from pancreatic cancer and was dx after having simil ar sx, pt is anxious that she has pancreatic cancer. Hx of anxiety. Denies f/c, cough, congestion, CP, SOB, n/v, constipation, urinary sx. <Lluvia Ryan - Last Filed: 03/25/19 06:53> <Nolan SINGH - Last Filed: 03/25/19 07:41> - General Chief Complaint: Abdominal Pain Stated Complaint: upper abd pain, diarrhea since Tue, nausea Time Seen by Provider: 03/25/19 05:25 Review of Systems - Review of Systems Constitutional: Denies: chills, fever EENTM: States: no symptoms reported Respiratory: Denies: cough, short of breath, stridor Cardiology: Denies: chest pain, edema, palpitations, syncope Gastrointestinal/Abdominal: States: abdominal pain, diarrhea. Denies: constipation, nausea, vomiting Genitourinary: Denies: dysuria, frequency, hematuria Musculoskeletal: States: back pain. Denies: neck pain Skin: Denies: change in color, rash Neurological: Denies: headache, numbness, weakness Endocrine: Denies: increased thirst, increased urine Hematologic/Lymphatic: Denies: easy bleeding, easy bruising <Lluvia Ryan - Last Filed: 03/25/19 06:53> Past Medical History (General) - Patient Medical History Hx Seizures: No Hx Stroke: No Hx Dementia: No Hx Asthma: No Hx of COPD: No Hx Cardiac Disorders: Yes - 3 stents Hx Congestive Heart Failure: No Hx Pacemaker: No Hx Hypertension: Yes Hx Thyroid Disease: No Hx Diabetes: Yes Hx Gastroesophageal Reflux: Yes Hx Renal Disease: No Hx Cancer: No Hx of HIV: No Hx Hepatitis C: No Hx MRSA: No Surgical History: cholecystectomy, tonsillectomy - Vaccination History Hx Tetanus, Diphtheria Vaccination: No Hx Influenza Vaccination: Yes - 2017 Hx Pneumococcal Vaccination: Yes - 2018 - Social History Hx Tobacco Use: No Hx Chewing Tobacco Use: No Hx Alcohol Use: No Hx Substance Use: No Hx Substance Use Treatment: No Hx Depression: Yes Hx Physical Abuse: No Hx Emotional Abuse: No Hx Suspected Abuse: No - Female History Patient : No <Lluvia Ryan - Last Filed: 03/25/19 06:53> Family Medical History - Family History Mother Family History: No Known Living Status: Still Living Hx Family;Other: aortic aneurysm -dad <Lluvia Ryan - Last Filed: 03/25/19 06:53> Physical Exam - Physical Exam General Appearance: Alert, No apparent distress, Well Developed, Well Nourished Eyes, Ears, Nose, Throat Exam: normal ENT inspection Neck: full range of motion, supple Respiratory: chest non-tender, lungs clear, normal breath sounds, no respiratory distress, no accessory muscle use Cardiovascular/Chest: normal peripheral pulses, regular rate, rhythm, no edema, no gallop, no JVD, no murmur Peripheral Pulses: No deficit Gastrointestinal/Abdominal: normal bowel sounds, soft, no organomegaly, no pulsatile mass, tenderness - epigastric, other - no guarding or rebound Back Exam: no CVA tenderness Extremity: normal range of motion, non-tender, normal inspection, no pedal edema, no calf tenderness Neurologic: no motor/sensory deficits, alert, normal mood/affect Skin Exam: normal color, warm/dry Lymphatic: no adenopathy <Lluvia Ryan - Last Filed: 03/25/19 06:53> Progress - Progress Progress: 03/25/19 07:[address] Singh. Labs consistent with dehydration, will give another bolus. CT and c diff pending. Pt was able to leave a very small stool sample. Lluvia Ryan MD Emergency Medicine Physician Billing Number [id number] - Results/Orders Results/Orders: 03/25/19 05:26 Hold Metformin x 48Hrs [id number] Abdomen/Pelvis w/Contrast [CT] Stat FECAL OCCULT BLOOD Stat OVA & PARASITE EXAM Routine Sodium Chloride 0.9% 1000ML [Ns 1000 ml] 1,000 ml IVS ONCE STOOL CULTURE Stat CRYPTOSPORIDIA AG,STOOL Stat NOROVIRUS,EIA STOOL Stat 03/25/19 05:30 EKG STAT Laboratory Results - last 24 hr 03/25/19 03/25/19 03/25/19 05:21 05:21 05:26 WBC 6.4 RBC 5.26 Hgb 16.3 H Hct 49.5 H MCV 94.2 MCH 31.1 H MCHC 33.0 RDW 15.3 H Plt Count 255 MPV 8.4 Absolute Neuts (auto) 3.70 Absolute Lymphs (auto) 1.70 Absolute Monos (auto) 0.90 H Absolute Eos (auto) 0.20 Absolute Basos (auto) 0.00 Neutrophils % 56.8 Lymphocytes % 25.7 Monocytes % 14.3 H Eosinophils % 2.8 Basophils % 0.4 Sodium 137 Potassium 3.5 L Chloride 103 Carbon Dioxide 18 L Anion Gap 19.5 H BUN 16 Creatinine 0.90 BUN/Creatinine Ratio 17.8 Random Glucose 132 H Serum Osmolality 276.9 Calcium 9.6 Total Bilirubin 0.7 AST 43 H ALT 45 Alkaline Phosphatase 69 Serum Total Protein 8.5 H Albumin 4.7 Globulin 3.8 H Albumin/Globulin Ratio 1.2 Lipase 30 Urine Color Urine Appearance Urine pH Ur Specific [place] Urine Protein Urine Glucose (UA) Urine Ketones Urine Blood Urine Nitrite Urine Bilirubin Urine Urobilinogen Ur Leukocyte Esterase Urine RBC Urine WBC Ur Epithelial Cells Urine Bacteria 03/25/19 05:30 WBC RBC Hgb Hct MCV MCH MCHC RDW Plt Count MPV Absolute Neuts (auto) Absolute Lymphs (auto) Absolute Monos (auto) Absolute Eos (auto) Absolute Basos (auto) Neutrophils % Lymphocytes % Monocytes % Eosinophils % Basophils % Sodium Potassium Chloride Carbon Dioxide Anion Gap BUN Creatinine BUN/Creatinine Ratio Random Glucose Serum Osmolality Calcium Total Bilirubin AST ALT Alkaline Phosphatase Serum Total Protein Albumin Globulin Albumin/Globulin Ratio Lipase Urine Color Yellow Urine Appearance Clear Urine pH 5.5 Ur Specific [place] 1.025 Urine Protein Negative Urine Glucose (UA) 500 H Urine Ketones 40 H Urine Blood Negative Urine Nitrite Negative Urine Bilirubin Small H Urine Urobilinogen 0.2 Ur Leukocyte Esterase Negative Urine RBC 0-1 Urine WBC 0-1 Ur Epithelial Cells 5-10 Urine Bacteria Rare Vital Signs - 24 hr 03/25/19 03/25/19 04:52 04:53 Temperature 97.0 F L 97.4 F L Pulse Rate [ 100 H 97 H monitor] Respiratory 16 18 Rate Blood Pressure 130/94 130/94 [Left Arm] O2 Sat by Pulse 96 96 Oximetry - EKG/XRAY/CT EKG: Sinus Comments: poor R wave progression, nonspecific T wave, normal ST <Lluvia Ryan - Last Filed: 03/25/19 06:53> - Progress Progress: 03/25/19 07:[address] Singh Saw pt she is comfortable on her bed but still has some epigastric pain , vitals are stable , her CT scan showed transient jejunal intussusception , result discussed with the pt , talked to the surgeon Dr avendano research environmental scientist advised to transfer the pt to the other hospital as there is some problem with OR , called [facility] [place] talked to Dr Levy agreed to accept the pt. 03/25/19 07:40 <Nolan SINGH - Last Filed: 03/25/19 07:41> Departure <Lluvia Ryan - Last Filed: 03/25/19 06:53> - Departure Time of Disposition: 07:40 <Nolan SINGH - Last Filed: 03/25/19 07:41> - Departure Clinical Impression: Acute abdominal pain, Volume depletion Diarrhea Qualifiers: Diarrhea type: unspecified type Qualified Code(s): R19.7 - Diarrhea, unspecified Disposition: Transfer to Hospital Health Concerns: condition: stable Departure Forms: ED Discharge - Pt. Copy, Patient Portal Self Enrollment Instructions: DI for Abdominal Pain-Adult Referrals: Hong Hardwick MD [Primary Care Provider] - 1-5 Days Home Medications: Ambulatory Orders RX: Clopidogrel Bisulfate [Plavix] 75 mg PO QAM 05/27/12 RX: Esomeprazole [Nexium] 40 mg PO ACBK 05/27/12 RX: Zolpidem Tartrate 10 mg PO BEDTIME 06/22/17 Duloxetine HCl [Cymbalta] 30 mg PO QAM 10/13/17 RX: Losartan Potassium 25 mg PO BID 10/13/17 ALPRAZolam [Xanax] 0.25 mg PO QAM 03/25/19 Empagliflozin [Jardiance] 25 mg PO QAM 03/25/19 RX: Pravastatin Sodium 40 mg PO BEDTIME 03/25/19
[2019-03-25] MEDS ORDERED: ACETAMINOPHEN IV 1000MG 100 ML ONE (05:39)
--- NOTE | 2019-03-25 07:08 | CT ---
CT abdomen and pelvis with contrast on 03/25/2019 CLINICAL INDICATION: Generalized abdominal pain TECHNIQUE: Multiple axial images are obtained throughout the abdomen and pelvis following the administration of IV contrast. This exam was performed according to our departmental dose-optimization program, which includes automated exposure control, adjustment of the mA and/or kV according to patient size and/or use of iterative reconstruction technique. Total DLP is 936.37 mGy*cm. COMPARISON: 06/14/2009 FINDINGS: Abdomen: There is minimal basilar atelectasis. There is a moderate to large size hiatal hernia. The patient is status post cholecystectomy. The solid abdominal organs are otherwise unremarkable. There is no abdominal adenopathy. A likely incidental transient jejunal intussusception is noted in the left abdomen on axial images 39 through 46. The abdominal portion of the GI tract is otherwise unremarkable. Pelvis: The uterus is retroverted/retroflexed. Pelvic organs otherwise appear unremarkable by CT. There is no free fluid in the pelvis. There is no pelvic adenopathy. There is diverticulosis. The appendix is not visualized but no pericecal inflammatory changes are noted. The pelvic portion of the GI tract is otherwise unremarkable. Degenerative changes are noted in the spine. IMPRESSION: 1. Hiatal hernia. 2. Likely incidental transient jejunal intussusception in the left abdomen. 3. Mild diverticulosis. Electronically signed by: Hansel Flores 03/25/2019 7:05 AM SHOOTER HELPER
[2019-03-25 07:54] VITALS: BP 155/97; TEMP 97.7; O2SAT 97
== END 2019-03-25 08:05 | disposition short-term general hospital (02) ==
LOC: ER 04:51
DX: R10.13 Epigastric pain (principal); R19.7 Diarrhea, unspecified; E86.9 Volume depletion, unspecified; K56.1 Intussusception; K21.9 Gastro-esophageal reflux disease without esophagitis; I10 Essential (primary) hypertension; E11.9 Type 2 diabetes mellitus without complications; F32.9 Major depressive disorder, single episode, unspecified; F41.9 Anxiety disorder, unspecified; Z95.5 Presence of coronary angioplasty implant and graft; Z90.49 Acquired absence of other specified parts of digestive tract; Z79.899 Other long term (current) drug therapy; Z79.02 Long term (current) use of antithrombotics/antiplatelets
CPT/HCPCS: 36415; 74177; 80053; 81001; 82270; 83690; 85025; 87015; 87177; 87209; 87272; 93005; J7030

== ENCOUNTER → 2020-05-15 | Outpatient (CLI) | payer MEDICARE | LOC: GMA MATASK 11:30 | PROVIDERS: ATTEND Family Medicine | DX: I10 Essential (primary) hypertension (principal); E11.9 Type 2 diabetes mellitus without complications; E03.9 Hypothyroidism, unspecified ==